=== PATIENT | male | born 1935 | race Caucasian/White ===

== ENCOUNTER → 2024-03-05 | Outpatient (CLI) | payer MEDICARE ==
[2024-03-05 20:01] LABS: Appearance,Urine Clear (Clear); Bilirubin,Urine Negative (Negative); Blood,Urine Negative (Negative); Color,Urine Yellow (Yellow); Ketones,Urine Negative (Negative); Nitrite,Urine Negative (Negative); PH, Urine 5.5; Specific Gravity,Urine 1.022 (1.001-1.030)
[2024-03-05 20:13] LABS: Basophils # (A) 0.05 X 10*3/uL (0.00-0.10); Basophils % (A) 0.5 %; Eosinophils # (A) 0.66 X 10*3/uL (0.04-0.35); HCT 33.1 % (39.6-50.0); HGB 10.4 g/dL (13.0-17.0); Lymphocytes # (A) 1.48 X 10*3/uL (0.90-5.00); Lymphocytes % (A) 15.6 %; MCHC 31.4 g/dL (32.0-37.0); MCV 98.8 FL (80.0-97.0); Mean Platelet Volume 10.6 FL (9.5-12.2); Monocytes # (A) 0.84 X 10*3/uL (0.20-1.00); Monocytes % (A) 8.9 %; NRBC Per 100 WBC 0 X 10*3/uL (0.00-0.01); Neutrophils % (A) 67.5 %; Platelet Count 285 X 10*3/uL (140-440); RBC 3.35 X 10*6/uL (4.40-5.60); RDW 13.1 % (11.5-14.5); WBC 9.48 X 10*3/uL (4.50-10.00)
[2024-03-05 20:20] LABS: ALT 13 U/L (10-49); AST 17 U/L (14-35); Albumin 3.9 g/dL (3.8-4.9); Albumin/Globulin Ratio 1.56 Ratio (1.60-3.17); Alkaline Phosphatase 120 U/L (41-126); BUN/Creat Ratio 28.11 Ratio (12.00-20.00); Blood Urea Nitrogen 50.6 mg/dL (9.0-27.0); Calcium 9.4 mg/dL (8.7-10.3); Carbon Dioxide 19.9 mmol/L (21.6-31.8); Chloride 106 mmol/L (96-109); Globulin 2.5 g/dL (1.6-3.3); Glucose 116 mg/dL (70-110); Magnesium 2.6 mg/dL (1.5-2.4); Phosphorus 3.7 mg/dL (2.4-5.1); Potassium 5.1 mmol/L (3.5-5.5); Sodium 140 mmol/L (135-145); Total Bilirubin 0.3 mg/dL (0.3-1.2); Total Protein 6.4 g/dL (6.2-8.2)
[2024-03-05 20:21] LABS: Microalbumin Creatinine Ratio <9 mg/g Cr (0-30)
[2024-03-05 20:28] LABS: Bacteria,Urine None Seen (None Seen)
== END | disposition home or self-care (01) ==
LOC: LABWHC1 13:03
PROVIDERS: ATTEND Internal Medicine
DX: N18.32 Chronic kidney disease, stage 3b (principal)
CPT/HCPCS: 36415; 80053; 81001; 82043; 82570; 83735; 84100; 85025

== ENCOUNTER 2024-04-07 08:17 | Inpatient (IN) | payer MEDICARE ==
[2024-04-07 09:08] LABS: Basophils # (A) 0.1 k/uL (0-0.2); Basophils % (A) 1 %; Eosinophils # (A) 0.4 k/uL (0-0.7); Eosinophils % (A) 3 %; Hypochromasia Marked; Lymphocytes # (A) 1.4 k/uL (1.0-4.8); Lymphocytes % (A) 12 %; MCH 30.9 pg (25.0-35.0); MCHC 30.4 g/dL (31.0-37.0); MCV 101.4 fL (80.0-100.0); Macrocytosis Slight; Mean Platelet Volume 7.9; Monocytes # (A) 0.8 k/uL (0-1.0); Monocytes % (A) 7 %; Neutrophils # (A) 8.2 k/uL (1.3-7.7); Neutrophils % (A) 74 %; Platelet Count 357 k/uL (150-450); Poikilocytosis Slight; RBC 2.27 m/uL (4.30-5.90); WBC 11.1 k/uL (3.8-10.6)
[2024-04-07 09:28] LABS: INR 1.4 (<1.2); Partial Thromboplastin Time 27.3 sec (22.0-30.0); Prothrombin Time 15.1 sec (10.0-12.5)
--- NOTE | 2024-04-07 09:28 | XR ---
EXAMINATION TYPE: XR chest 2V DATE OF EXAM: 04/07/2024 9:07 AM COMPARISON: 04/07/2024 CLINICAL INDICATION: Male, 88 years old with history of Weakness, TECHNIQUE: Frontal and lateral views of the chest are obtained. FINDINGS: COPD changes noted. There is no focal air space opacity, pleural effusion, or pneumothorax seen. The cardiac silhouette size is within normal limits. The osseous structures are intact. IMPRESSION: No acute cardiopulmonary process. [facility], , 04/07/2024 9:25 AM
[2024-04-07 09:39] LABS: ALT 16 U/L (4-49); AST 24 U/L (17-59); African American GFR (CKD) 37 (>60 ml/min/1.73 sqM); Albumin 4.2 g/dL (3.5-5.0); Alkaline Phosphatase 122 U/L (38-126); Anion Gap 13 mmol/L; Blood Urea Nitrogen 40 mg/dL (9-20); Carbon Dioxide 21 mmol/L (22-30); Chloride 102 mmol/L (98-107); Glucose 140 mg/dL (74-99); Magnesium 2.2 mg/dL (1.6-2.3); Non-African American GFR(CKD) 32 (>60 ml/min/1.73 sqM); Potassium 4.2 mmol/L (3.5-5.1); Sodium 136 mmol/L (137-145); Total Bilirubin 0.4 mg/dL (0.2-1.3); Total Protein 6.6 g/dL (6.3-8.2)
[2024-04-07 09:45] LABS: NT-Pro-B-Type Natriuretic Pept 1160 pg/mL
--- NOTE | 2024-04-07 11:11 | ED ---
General Adult HPI - General Chief complaint: Recheck/Abnormal Lab/Rx Stated complaint: Low hemoglobin Time Seen by Provider: 04/07/24 08:25 Source: patient, family Mode of arrival: ambulatory Limitations: no limitations - History of Present Illness Initial comments: 88-year-old male who presents to the emergency department under the direction of his primary care. He states that he had laboratory studies done on Friday to check his kidney function. His doctor had taken him off of [facility] as the patient was having some kidney injury. He reports that the blood work never got sent so they had to come back on Friday and recheck his labs. He was called and told that his hemoglobin was low and he needed to come to the hospital. He has had low hemoglobin before. States approximately 5 years ago he ended up requiring a blood transfusion. He states he thought it was due to iron deficiency anemia. Patient does take an iron supplement. Reports that it is made him constipated and for 3 weeks he has had inability to have a bowel mov ement. He has been rectally disimpacting himself. States that he will not see blood on the stool however he will have drops of bright red blood which will fall into the toilet. Patient does take anticoagulation. He is on Plavix and Eliquis. He states his last colonoscopy was 7 years ago. He denies any fevers. No abdominal pain. No other alleviating, precipitating modifying factors - Related Data Home Medications Medication Instructions Recorded Confirmed Amiodarone [Cordarone] 100 mg PO DAILY 04/07/24 04/07/24 Ascorbic Acid [Vitamin C] 1,000 mg PO DAILY 04/07/24 04/07/24 Atorvastatin [Lipitor] 40 mg PO DAILY 04/07/24 04/07/24 Cholecalciferol [Vitamin D3 (125 125 mcg PO DAILY 04/07/24 04/07/24 Mcg = 5000 Iu)] Clopidogrel [Plavix] 75 mg PO DAILY 04/07/24 04/07/24 Cyanocobalamin (Vitamin B-12) 1,000 mcg PO DAILY 04/07/24 04/07/24 [Vitamin B-12] Furosemide [Lasix] 40 mg PO DAILY 04/07/24 04/07/24 Isosorbide Mononitrate ER [Imdur] 30 mg PO DAILY 04/07/24 04/07/24 Levothyroxine Sodium [Synthroid] 150 mcg PO DAILY 04/07/24 04/07/24 Linaclotide [Linzess] 145 mcg PO DIRECTED 04/07/24 04/07/24 Metoprolol Succinate (ER) [Toprol 25 mg PO DAILY 04/07/24 04/07/24 Xl] Multivitamins, Thera [Multivitamin 1 tab PO DAILY 04/07/24 04/07/24 (formulary)] Nitroglycerin Sl Tabs [Nitrostat] 0.4 mg SUBLINGUAL Q5M PRN 04/07/24 04/07/24 Rivaroxaban [Xarelto] 20 mg PO W/SUPPER 04/07/24 04/07/24 Sennosides-Docusate Sodium 2 tab PO DAILY 04/07/24 04/07/24 [Senokot-S] Allergies Allergy/AdvReac Type Severity Reaction Status Date / Time No Known Allergies Allergy Verified 04/07/24 10:11 Review of Systems ROS Statement: Those systems with pertinent positive or pertinent negative responses have been documented in the HPI. ROS Other: All systems not noted in ROS Statement are negative. Past Medical History Past Medical History: Atrial Fibrillation, Cancer Additional Past Medical History / Comment(s): prostate CA, melanoma (great toe), Past Surgical History: Cardiac Valve Replacement, Cholecystectomy, Coronary Bypass/CABG, Heart Catheterization Additional Past Surgical History / Comment(s): left hand. Smoking Status: Former smoker Past Alcohol Use History: Occasional Past Drug Use History: None Reported - Past Family History Father Family Medical History: Congestive Heart Failure (CHF), Coronary Artery Disease (CAD), Myocardial Infarction (IN) Additional Family Medical History / Comment(s): from [place] Mother Family Medical History: Myocardial Infarction (IN) Additional Family Medical History / Comment(s): from [place] General Exam Limitations: no limitations General appearance: alert, in no apparent distress Head exam: Present: atraumatic, normocephalic, normal inspection Eye exam: Present: normal appearance, PERRL, EOMI. Absent: scleral icterus, conjunctival injection, periorbital swelling ENT exam: Present: normal exam, mucous membranes moist Neck exam: Present: normal inspection. Absent: tenderness, meningismus, lymphadenopathy Respiratory exam: Present: normal lung sounds bilaterally. Absent: respiratory distress, wheezes, rales, rhonchi, stridor Cardiovascular Exam: Present: regular rate, normal rhythm, normal heart sounds. Absent: systolic murmur, diastolic murmur, rubs, gallop, clicks GI/Abdominal exam: Present: soft, normal bowel sounds. Absent: distended, tenderness, guarding, rebound, rigid Rectal exam: Present: heme (+) stool, other (Brown stool). Absent: black stool, bloody stool Extremities exam: Present: normal inspection, full ROM, normal capillary refill. Absent: tenderness, pedal edema, joint swelling, calf tenderness Back exam: Present: normal inspection Neurological exam: Present: alert, oriented X3, CN II-XII intact Psychiatric exam: Present: normal affect, normal mood Skin exam: Present: warm, dry, intact, normal color. Absent: rash Course Vital Signs 04/07/24 04/07/24 04/07/24 08:19 09:25 11:46 Temperature 98.7 F 97.9 F Pulse Rate 55 L 88 86 Respiratory 18 22 18 Rate Blood Pressure 120/71 130/61 108/51 O2 Sat by Pulse 98 98 95 Oximetry 04/07/24 04/07/24 04/07/24 12:00 12:20 13:00 Temperature 98.1 F 98.2 F Pulse Rate 86 92 82 Respiratory 18 18 20 Rate Blood Pressure 122/92 112/70 113/56 O2 Sat by Pulse 99 96 96 Oximetry 04/07/24 04/07/24 04/07/24 13:56 16:00 17:00 Temperature Pulse Rate 82 89 93 Respiratory 18 20 20 Rate Blood Pressure 134/58 108/58 112/58 O2 Sat by Pulse 97 96 96 Oximetry 04/07/24 04/07/24 04/07/24 18:00 21:08 23:12 Temperature Pulse Rate 83 78 90 Respiratory 20 18 18 Rate Blood Pressure 104/57 99/54 104/56 O2 Sat by Pulse 95 Oximetry 04/08/24 04/08/24 04/08/24 01:08 02:32 05:20 Temperature Pulse Rate 88 92 98 Respiratory 18 18 18 Rate Blood Pressure 90/59 103/55 108/64 O2 Sat by Pulse 97 Oximetry 04/08/24 06:45 Temperature Pulse Rate 93 Respiratory 16 Rate Blood Pressure 125/54 O2 Sat by Pulse 97 Oximetry Procedures - [place] Protocol (Time Out) Nurse: Jones,Phani L Medical Decision Making - Medical Decision Making Was pt. sent in by a medical professional or institution (ELANA Westfall, DATA SOFTWARE ENGINEER, urgent care, hospital, or snf...) When possible be specific @ -Patient sent in from his primary care office Did you speak to anyone other than the patient for history (EMS, parent, family, police, friend...)? What history was obtained from this source @ -Spoke with son for history Did you review nursing and triage notes (agree or disagree)? Why? @ -I reviewed and agree with nursing and triage notes Were old charts reviewed (outside hosp., previous admission, EMS record, old EKG, old radiological studies, urgent care reports/EKG's, snf records)? Report findings @ -No old charts were reviewed Differential Diagnosis (chest pain, altered mental status, abdominal pain women, abdominal pain men, vaginal bleeding, weakness, fever, dyspnea, syncope, headache, dizziness, GI bleed, back pain, seizure, CVA, palpatations, mental health, musculoskeletal)? @ -Differential Dyspnea: Coronary syndrome, arrhythmia, tamponade, asthma, COPD, pulmonary embolism, pneumonia, pneumothorax, pulmonary effusion, anaphylaxis, diabetic ketoacidosis, flailed chest, pulmonary contusion, diaphragmatic rupture, anemia, n euromuscular, this is not meant to be an all-inclusive list. EKG interpreted by me (3pts min.). @ -Yes and demonstrates sinus rhythm with a left bundle branch block. Rate of 97. MI interval 207. QRS 155. QTc of 432. No acute ST segment elevations or depressions X-rays interpreted by me (1pt min.). @Yes and demonstrates no acute process CT interpreted by me (1pt min.). @ -None done U/S interpreted by me (1pt. min.). @ -None done What testing was considered but not performed or refused? (CT, X-rays, U/S, labs)? Why? @ -None What meds were considered but not given or refused? Why? @ -None Did you discuss the management of the patient with other professionals (professionals i.e. ELANA Westfall, DATA SOFTWARE ENGINEER, lab, RT, psych nurse, social work instructor, skid road worker, teacher, space officer, case management assistant)? Give summary @ -Spoke with Dr. Barrow for admission and with Dr. Garner who is the patient's primary care Was smoking cessation discussed for >3mins.? @ -No Was critical care preformed (if so, how long)? @ -Yes, 35 minutes for blood product transfusion Were there social determinants of health that impacted care today? How? (Homelessness, low income, unemployed, alcoholism, drug addiction, transportatio n, low edu. Level, literacy, decrease access to med. care, mcc, rehab)? @ -No Was there de-escalation of care discussed even if they declined (Discuss DNR or withdrawal of care, Hospice)? DNR status @ -No What co-morbidities impacted this encounter? (DM, HTN, Smoking, COPD, CAD, Cancer, CVA, ARF, Chemo, Hep., AIDS, mental health diagnosis, sleep apnea, morbid obesity)? @ -History of iron deficiency, history of GI bleed Was patient admitted / discharged? Hospital course, mention meds given and route, prescriptions, significant lab abnormalities, going to OR and other pertinent info. @ -Upon arrival patient seen and evaluated in bed 2. Thorough history and physical exam was performed. Rectal exam was performed. IV was established laboratory studies were conducted. Chest x-ray was performed. Patient will be transfused. Recommended admission for GI consultation. Spoke with Dr. Barrow for admission Undiagnosed new problem with uncertain prognosis? @ -No Drug Therapy requiring intensive monitoring for toxicity (Heparin, Nitro, Insulin, Cardizem)? @ -No Were any procedures done? @ -No Diagnosis/symptom? @ -Acute anemia, suspected GI bleeding, history of iron deficiency Acute, or Chronic, or Acute on Chronic? @ -Acute Uncomplicated (without systemic symptoms) or Complicated (systemic symptoms)? @ -Complicated Side effects of treatment? @ -No Exacerbation, Progression, or Severe Exacerbation? @ -No Poses a threat to life or bodily function? How? (Chest pain, [place], [place], pneumonia, PE, COPD, DKA, ARF, appy, cholecystitis, CVA, Diverticulitis, Homicidal, Suicidal, threat to staff... and all critical care pts) @ -Yes as patient is markedly anemic - Lab Data Result diagrams: 04/12/24 05:49 04/12/24 05:49 Lab Results 04/07/24 04/07/24 04/07/24 Range/Units 08:40 08:40 08:40 WBC 11.1 H (3.8-10.6) k/uL RBC 2.27 L (4.30-5.90) m/uL Hgb 7.0 L (13.0-17.5) gm/dL Hct 23.0 L (39.0-53.0) % MCV 101.4 H (80.0-100.0) fL MCH 30.9 (25.0-35.0) pg MCHC 30.4 L (31.0-37.0) g/dL RDW 15.0 (11.5-15.5) % Plt Count 357 (150-450) k/uL MPV 7.9 Neutrophils % 74 % Lymphocytes % 12 % Monocytes % 7 % Eosinophils % 3 % Basophils % 1 % Neutrophils # 8.2 H (1.3-7.7) k/uL Lymphocytes # 1.4 (1.0-4.8) k/uL Monocytes # 0.8 (0-1.0) k/uL Eosinophils # 0.4 (0-0.7) k/uL Basophils # 0.1 (0-0.2) k/uL Hypochromasia Marked Poikilocytosis Slight Macrocytosis Slight PT 15.1 H (10.0-12.5) sec INR 1.4 H (<1.2) APTT 27.3 (22.0-30.0) sec Sodium 136 L (137-145) mmol/L Potassium 4.2 (3.5-5.1) mmol/L Chloride 102 (98-107) mmol/L Carbon Dioxide 21 L (22-30) mmol/L Anion Gap 13 mmol/L BUN 40 H (9-20) mg/dL Creatinine 1.85 H (0.66-1.25) mg/dL Est GFR (CKD-EPI)AfAm 37 (>60 ml/min/1.73 sqM) Est GFR (CKD-EPI)NonAf 32 (>60 ml/min/1.73 sqM) Glucose 140 H (74-99) mg/dL Lactic Ac Sepsis Rflx Plasma Lactic Acid Salo (0.7-2.0) mmol/L Calcium 10.0 (8.4-10.2) mg/dL Magnesium 2.2 (1.6-2.3) mg/dL Total Bilirubin 0.4 (0.2-1.3) mg/dL AST 24 (17-59) U/L ALT 16 (4-49) U/L Alkaline Phosphatase 122 (38-126) U/L Troponin I (0.000-0.034) ng/mL NT-Pro-B Natriuret Pep 1160 pg/mL Total Protein 6.6 (6.3-8.2) g/dL Albumin 4.2 (3.5-5.0) g/dL Stool Occult Blood (Negative) Blood Type Blood Type Confirm Blood Type Recheck Bld Type Recheck Status Antibody Screen Crossmatch Spec Expiration Date 04/07/24 04/07/24 04/07/24 Range/Units 08:40 08:40 08:40 WBC (3.8-10.6) k/uL RBC (4.30-5.90) m/uL Hgb (13.0-17.5) gm/dL Hct (39.0-53.0) % MCV (80.0-100.0) fL MCH (25.0-35.0) pg MCHC (31.0-37.0) g/dL RDW (11.5-15.5) % Plt Count (150-450) k/uL MPV Neutrophils % % Lymphocytes % % Monocytes % % Eosinophils % % Basophils % % Neutrophils # (1.3-7.7) k/uL Lymphocytes # (1.0-4.8) k/uL Monocytes # (0-1.0) k/uL Eosinophils # (0-0.7) k/uL Basophils # (0-0.2) k/uL Hypochromasia Poikilocytosis Macrocytosis PT (10.0-12.5) sec INR (<1.2) APTT (22.0-30.0) sec Sodium (137-145) mmol/L Potassium (3.5-5.1) mmol/L Chloride (98-107) mmol/L Carbon Dioxide (22-30) mmol/L Anion Gap mmol/L BUN (9-20) mg/dL Creatinine (0.66-1.25) mg/dL Est GFR (CKD-EPI)AfAm (>60 ml/min/1.73 sqM) Est GFR (CKD-EPI)NonAf (>60 ml/min/1.73 sqM) Glucose (74-99) mg/dL Lactic Ac Sepsis Rflx Plasma Lactic Acid Salo 4.5 H* (0.7-2.0) mmol/L Calcium (8.4-10.2) mg/dL Magnesium (1.6-2.3) mg/dL Total Bilirubin (0.2-1.3) mg/dL AST (17-59) U/L ALT (4-49) U/L Alkaline Phosphatase (38-126) U/L Troponin I 0.029 (0.000-0.034) ng/mL NT-Pro-B Natriuret Pep pg/mL Total Protein (6.3-8.2) g/dL Albumin (3.5-5.0) g/dL Stool Occult Blood (Negative) Blood Type AB Negative Blood Type Confirm Blood Type Recheck No Previous Record Bld Type Recheck Status CABO Indicated Antibody Screen NEGATIVE Crossmatch See Detail Spec Expiration Date 04/10/2024 - 233904/07/24 04/07/24 04/07/24 Range/Units 08:52 09:22 09:52 WBC (3.8-10.6) k/uL RBC (4.30-5.90) m/uL Hgb (13.0-17.5) gm/dL Hct (39.0-53.0) % MCV (80.0-100.0) fL MCH (25.0-35.0) pg MCHC (31.0-37.0) g/dL RDW (11.5-15.5) % Plt Count (150-450) k/uL MPV Neutrophils % % Lymphocytes % % Monocytes % % Eosinophils % % Basophils % % Neutrophils # (1.3-7.7) k/uL Lymphocytes # (1.0-4.8) k/uL Monocytes # (0-1.0) k/uL Eosinophils # (0-0.7) k/uL Basophils # (0-0.2) k/uL Hypochromasia Poikilocytosis Macrocytosis PT (10.0-12.5) sec INR (<1.2) APTT (22.0-30.0) sec Sodium (137-145) mmol/L Potassium (3.5-5.1) mmol/L Chloride (98-107) mmol/L Carbon Dioxide (22-30) mmol/L Anion Gap mmol/L BUN (9-20) mg/dL Creatinine (0.66-1.25) mg/dL Est GFR (CKD-EPI)AfAm (>60 ml/min/1.73 sqM) Est GFR (CKD-EPI)NonAf (>60 ml/min/1.73 sqM) Glucose (74-99) mg/dL Lactic Ac Sepsis Rflx Y Plasma Lactic Acid Salo (0.7-2.0) mmol/L Calcium (8.4-10.2) mg/dL Magnesium (1.6-2.3) mg/dL Total Bilirubin (0.2-1.3) mg/dL AST (17-59) U/L ALT (4-49) U/L Alkaline Phosphatase (38-126) U/L Troponin I (0.000-0.034) ng/mL NT-Pro-B Natriuret Pep pg/mL Total Protein (6.3-8.2) g/dL Albumin (3.5-5.0) g/dL Stool Occult Blood Positive (Negative) Blood Type Blood Type Confirm AB Negative Blood Type Recheck Bld Type Recheck Status Antibody Screen Crossmatch Spec Expiration Date Disposition Clinical Impression: Anemia, Occult blood positive stool, Lactic acid acidosis, Anticoagulation adequate Disposition: ADMITTED IP TO THIS [facility] Condition: Stable Is patient prescribed a controlled substance at d/c from ED?: No Time of Disposition: 11:44 Decision to Admit Reason: Admit from EC Decision Date: 04/07/24 Decision Time: 11:44
[2024-04-07] MEDS ORDERED: NALOXONE 0.4 MG/ML 1 ML VIAL IV PRN (11:44)
[2024-04-07 16:33] LABS: HCT 22.3 % (39.0-53.0); HGB 7.1 gm/dL (13.0-17.5); Hypochromasia Marked; MCH 31.5 pg (25.0-35.0); MCHC 31.7 g/dL (31.0-37.0); MCV 99.3 fL (80.0-100.0); Macrocytosis Slight; Mean Platelet Volume 7.4; Platelet Count 297 k/uL (150-450); Poikilocytosis Moderate; RBC 2.24 m/uL (4.30-5.90); RDW 15.4 % (11.5-15.5); WBC 9.6 k/uL (3.8-10.6)
--- NOTE | 2024-04-07 19:34 | P.HPIM ---
History of Present Illness H&P Date: 04/07/24 Chief Complaint: Low hemoglobin This is a pleasant 88-year-old patient who follows with visiting physician Dr. Garner. 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 Patient came in because he was told his hemoglobin is 7. Patient had a EGD colonoscopy over 10 years ago. Patient does take Xarelto and Plavix. Patient had dark stools off and on. Unit of blood was ordered in the ER does feel a bit tired. Patient seen in the ER this afternoon. Review of systems: GEN.: Tired EYES: None HEENT: [Decreased hearing NECK: None RESPIRATORY: None CARDIOVASCULAR: None GASTROINTESTINAL: No abdominal pain GENITOURINARY: None MUSCULOSKELETAL: Joint pains LYMPHATICS: None HEMATOLOGICAL: Dark stools PSYCHIATRY: None NEUROLOGICAL: Does use a walker Social history: Lives with family. Alcohol occasionally. Stopped smoking back in the 70s. Does use a walker. Physical examination: VITAL SIGNS: 98.2, 92, 18, 112 x 70, 96% room air GENERAL: [BMI 36.8, reclining bed awake not in distress. EYES: [Pupils equal. Conjunctiva pale l. HEENT: External appearance of nose and ears normal, oral cavity grossly normal. Decreased hearing NECK: JVD not raised; masses not palpable. HEART: First and second heart sounds are normal; no edema. LUNGS: Respiratory rate normal; clear to auscultation. ABDOMEN: Soft, nontender, liver spleen not palpable, no masses palpable. PSYCH: Alert and oriented x3; mood and affect ghada l. MUSCULOSKELETAL:No Clubbing/cyanosis;muscles-grossly intact. OA NEUROLOGICAL: Cranial nerves grossly intact; no facial asymmetry, power and sensation grossly intact. LYMPHATICS: No lymph nodes palpable in the axilla and neck INVESTIGATIONS, reviewed in the clinical context: White count 11.1 hemoglobin 7 platelets 357 sodium 136 potassium 4.2 BUN 40 creatinine 1.85 Troponin I 0.029 Stool occult blood positive EKG tracing personally reviewed by -(linda block. Sinus rhythm. Chest x-ray film personally reviewed by me-cardiomegaly Assessment and plan: -Anemia, symptomatic. Patient been having dark stools off and on for some time. Patient is on Eliquis and Plavix. Patient will be transfused 1 unit of blood. Eliquis Plavix has been held. GIs been consulted. Patient placed on clear liquids. -History of melanoma and prostate cancer both treated in the past. 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 Toprol-XL. Imdur. -Congestive heart failure, EF not known Lasix 40 mg a day -Hypothyroid Synthroid 150 mcg a day -Hyperlipidemia Lipitor 40 mg a day -Essential hypertension Toprol-XL 25 mg a day -Chronic constipation, patient normally has a bowel movement every 4 to 5 days -Paroxysmal atrial fibrillation currently in sinus rhythm On Eliquis. Hold for now. Toprol-XL 25 mg a day. Amiodarone -Left bundle linda block -DNR -Patient's daughter BETH Spears Care was discussed with the patient and the patient's son-in-law at the bedside. Past Medical History Past Medical History: Atrial Fibrillation, Cancer Additional Past Medical History / Comment(s): prostate CA, melanoma (great toe), Past Surgical History: Cardiac Valve Replacement, Cholecystectomy, Coronary Bypass/CABG, Heart Catheterization Additional Past Surgical History / Comment(s): left hand. Smoking Status: Former smoker Past Alcohol Use History: Occasional Past Drug Use History: None Reported Medications and Allergies Home Medications Medication Instructions Recorded Confirmed Type Amiodarone [Cordarone] 100 mg PO DAILY 04/07/24 04/07/24 History Ascorbic Acid [Vitamin C] 1,000 mg PO DAILY 04/07/24 04/07/24 History Atorvastatin [Lipitor] 40 mg PO DAILY 04/07/24 04/07/24 History Cholecalciferol [Vitamin D3 (125 125 mcg PO DAILY 04/07/24 04/07/24 History Mcg = 5000 Iu)] Clopidogrel [Plavix] 75 mg PO DAILY 04/07/24 04/07/24 History Cyanocobalamin (Vitamin B-12) 1,000 mcg PO DAILY 04/07/24 04/07/24 History [Vitamin B-12] Furosemide [Lasix] 40 mg PO DAILY 04/07/24 04/07/24 History Isosorbide Mononitrate ER [Imdur] 30 mg PO DAILY 04/07/24 04/07/24 History Levothyroxine Sodium [Synthroid] 150 mcg PO DAILY 04/07/24 04/07/24 History Linaclotide [Linzess] 145 mcg PO DIRECTED 04/07/24 04/07/24 History Metoprolol Succinate (ER) [Toprol 25 mg PO DAILY 04/07/24 04/07/24 History Xl] Multivitamins, Thera [Multivitamin 1 tab PO DAILY 04/07/24 04/07/24 History (formulary)] Nitroglycerin Sl Tabs [Nitrostat] 0.4 mg SUBLINGUAL Q5M PRN 04/07/24 04/07/24 History Rivaroxaban [Xarelto] 20 mg PO W/SUPPER 04/07/24 04/07/24 History Sennosides-Docusate Sodium 2 tab PO DAILY 04/07/24 04/07/24 History [Senokot-S] Allergies Allergy/AdvReac Type Severity Reaction Status Date / Time No Known Allergies Allergy Verified 04/07/24 10:11 Physical Exam Vitals: Vital Signs Temp Pulse Resp BP Pulse Ox 04/07/24 17:00 93 20 112/58 96 04/07/24 16:00 89 20 108/58 96 04/07/24 13:56 82 18 134/58 97 04/07/24 13:00 82 20 113/56 96 04/07/24 12:20 98.2 F 92 18 112/70 96 04/07/24 12:00 98.1 F 86 18 122/92 99 04/07/24 11:46 97.9 F 86 18 108/51 95 04/07/24 09:25 88 22 130/61 98 04/07/24 08:19 98.7 F 55 L 18 120/71 98 Intake and Output 04/07/24 04/07/24 04/07/24 06:59 14:59 22:59 Intake Total 288 Balance 288 Intake: Blood Product 288 Rc Pheresis 2 As3 Unit 288 [id number] Other: Weight 109.769 kg Results CBC & Chem 7: 04/07/24 16:18 04/07/24 08:40 Labs: Abnormal Lab Results - Last 24 Hours (Table) 04/07/24 04/07/24 04/07/24 Range/Units 08:40 08:40 08:40 WBC 11.1 H (3.8-10.6) k/uL RBC 2.27 L (4.30-5.90) m/uL Hgb 7.0 L (13.0-17.5) gm/dL Hct 23.0 L (39.0-53.0) % MCV 101.4 H (80.0-100.0) fL MCHC 30.4 L (31.0-37.0) g/dL Neutrophils # 8.2 H (1.3-7.7) k/uL PT 15.1 H (10.0-12.5) sec INR 1.4 H (<1.2) Sodium 136 L (137-145) mmol/L Carbon Dioxide 21 L (22-30) mmol/L BUN 40 H (9-20) mg/dL Creatinine 1.85 H (0.66-1.25) mg/dL Glucose 140 H (74-99) mg/dL Plasma Lactic Acid Salo (0.7-2.0) mmol/L Crossmatch 04/07/24 04/07/24 04/07/24 Range/Units 08:40 08:40 16:18 WBC (3.8-10.6) k/uL RBC 2.24 L (4.30-5.90) m/uL Hgb 7.1 L (13.0-17.5) gm/dL Hct 22.3 L (39.0-53.0) % MCV (80.0-100.0) fL MCHC (31.0-37.0) g/dL Neutrophils # (1.3-7.7) k/uL PT (10.0-12.5) sec INR (<1.2) Sodium (137-145) mmol/L Carbon Dioxide (22-30) mmol/L BUN (9-20) mg/dL Creatinine (0.66-1.25) mg/dL Glucose (74-99) mg/dL Plasma Lactic Acid Salo 4.5 H* (0.7-2.0) mmol/L Crossmatch See Detail
[2024-04-08] MEDS: LEVOTHYROXINE 50 MCG TAB PO SCH (06:43)
[2024-04-08 08:48] LABS: BUN/Creat Ratio 25.12 Ratio (12.00-20.00); Blood Urea Nitrogen 42.7 mg/dL (9.0-27.0); Carbon Dioxide 22.2 mmol/L (21.6-31.8); Chloride 106 mmol/L (96-109); Glucose 113 mg/dL (70-110); Potassium 4.8 mmol/L (3.5-5.5); Sodium 139 mmol/L (135-145)
[2024-04-08] MEDS: ASCORBIC ACID 500 MG TAB PO SCH (09:33)
[2024-04-08] MEDS: polyethylene glycoL 3350 17 GM POWD.PACK PO SCH (09:33)
[2024-04-08] MEDS: MULTIVITAMINS, THERA 1 EACH TAB PO SCH (09:33)
[2024-04-08] MEDS: ISOSORBIDE MONONITRATE ER 30 MG TAB.ER.24H PO SCH (09:33)
[2024-04-08] MEDS: METOPROLOL SUCCINATE (ER) 25 MG TAB.ER.24H PO SCH (09:33)
[2024-04-08] MEDS: SENNOSIDES-DOCUSATE SODIUM 1 EACH TAB PO SCH (09:33)
[2024-04-08] MEDS: FUROSEMIDE 40 MG TAB PO SCH (09:33)
[2024-04-08] MEDS: CYANOCOBALAMIN 500 MCG TAB PO SCH (09:33)
[2024-04-08] MEDS: AMIODARONE 200 MG TAB PO SCH (09:33)
[2024-04-08] MEDS: CHOLECALCIFEROL 125 MCG (5000 IU) TABLET PO SCH (09:33)
[2024-04-08] MEDS: ATORVASTATIN 40 MG TAB PO SCH (09:33)
[2024-04-08 10:01] LABS: Basophils # (A) 0.04 X 10*3/uL (0.00-0.10); Basophils % (A) 0.4 %; Eosinophils # (A) 0.24 X 10*3/uL (0.04-0.35); Eosinophils % (A) 2.6 %; HCT 22.5 % (39.6-50.0); HGB 6.4 g/dL (13.0-17.0); Lymphocytes % (A) 13.9 %; MCH 29.6 pg (27.0-32.0); MCHC 28.4 g/dL (32.0-37.0); MCV 104.2 FL (80.0-97.0); Mean Platelet Volume 10.3 FL (9.5-12.2); Monocytes # (A) 1.03 X 10*3/uL (0.20-1.00); NRBC Per 100 WBC 0.02 X 10*3/uL (0.00-0.01); Neutrophils # (A) 6.68 X 10*3/uL (1.80-7.70); Neutrophils % (A) 71.5 %; Platelet Count 276 X 10*3/uL (140-440); Polychromasia 2+ (None Seen); RBC 2.16 X 10*6/uL (4.40-5.60); RDW 16.2 % (11.5-14.5); WBC 9.35 X 10*3/uL (4.50-10.00)
--- NOTE | 2024-04-08 13:54 | P.CONS ---
History of Present Illness - Reason for Consult Consult date: 04/08/24 Hematochezia Requesting physician: Monae Man - Chief Complaint Abnormal labs - History of Present Illness This a pleasant 88-year-old male who presented to the emergency department directed by his physician for abnormal labs and low hemoglobin. Patient has a history of iron deficiency anemia on oral iron, atrial fibrillation on Xarelto, coronary artery disease on Plavix, prostate cancer and heart valve replacement. Patient states he was having blood work done and his physician told him to come in for concerns of low hemoglobin. Admitting hemoglobin was 7.0. He was given 1 unit of blood with a repeat hemoglobin is 7.1. Today's hemoglobin dropped down to 6.4. Patient states that he has been very constipated has not had a good bowel movement when he does it is very hard and large and he actually had to disimpact himself this week. When he had a bowel movement he had noticed that he has hemorrhoids and there was some bright red blood mixed with the stool and in the toilet. States that he does have dark stools at times as well he bought thought was secondary to his iron. He states that he has had colonoscopy in the past secondary to his iron deficiency anemia that was done at [facility]. He had EGD and colonoscopy in 2019 at [facility] with Dr. Oviedo for iron deficiency anemia with findings of small hiatal hernia, gastritis, diverticulosis and internal hemorrhoids. He states that the colonoscopy was found to be normal. He denies any known history of ulcers, denies any NSAID use, no abdominal pain and does not believe he has had a previous upper endoscopy. Patient's occult stool was positive for blood. Review of Systems REVIEW OF SYSTEMS: CARDIOPULMONARY: No chest pain or shortness of breath. Gastrointestinal: No Abdominal pain. No nausea or vomiting. No hematemesis, coffee-ground emesis. Forted hemorrhoids, constipation and rectal bleeding with bowel movement. GENITOURINARY: No dysuria or hematuria. MUSCULOSKELETAL: Reports normal range of motion., Joint pain. SKIN: No rashes. No jaundice. ENDOCRINE: No chills, fevers. No excessive weight gain or loss. No polydipsia or polyuria. PSYCHIATRIC: Unremarkable. NEUROLOGY: No change in mental status. Denies dizziness, headache. ENT: Vision unremarkable. CONSTITUTIONAL: No recent weight loss. No fever, chills, night sweats. Past Medical History Past Medical History: Atrial Fibrillation, Cancer Additional Past Medical History / Comment(s): prostate CA, melanoma (great toe), Past Surgical History: Cardiac Valve Replacement, Cholecystectomy, Coronary Bypass/CABG, Heart Catheterization Additional Past Surgical History / Comment(s): left hand. Smoking Status: Former smoker Past Alcohol Use History: Occasional Past Drug Use History: None Reported - Past Family History Father Family Medical History: Congestive Heart Failure (CHF), Coronary Artery Disease (CAD), Myocardial Infarction (ME) Additional Family Medical History / Comment(s): from ME Mother Family Medical History: Myocardial Infarction (ME) Additional Family Medical History / Comment(s): from ME Medications and Allergies Home Medications Medication Instructions Recorded Confirmed Type Amiodarone [Cordarone] 100 mg PO DAILY 04/07/24 04/07/24 History Ascorbic Acid [Vitamin C] 1,000 mg PO DAILY 04/07/24 04/07/24 History Atorvastatin [Lipitor] 40 mg PO DAILY 04/07/24 04/07/24 History Cholecalciferol [Vitamin D3 (125 125 mcg PO DAILY 04/07/24 04/07/24 History Mcg = 5000 Iu)] Clopidogrel [Plavix] 75 mg PO DAILY 04/07/24 04/07/24 History Cyanocobalamin (Vitamin B-12) 1,000 mcg PO DAILY 04/07/24 04/07/24 History [Vitamin B-12] Furosemide [Lasix] 40 mg PO DAILY 04/07/24 04/07/24 History Isosorbide Mononitrate ER [Imdur] 30 mg PO DAILY 04/07/24 04/07/24 History Levothyroxine Sodium [Synthroid] 150 mcg PO DAILY 04/07/24 04/07/24 History Linaclotide [Linzess] 145 mcg PO DIRECTED 04/07/24 04/07/24 History Metoprolol Succinate (ER) [Toprol 25 mg PO DAILY 04/07/24 04/07/24 History Xl] Multivitamins, Thera [Multivitamin 1 tab PO DAILY 04/07/24 04/07/24 History (formulary)] Nitroglycerin Sl Tabs [Nitrostat] 0.4 mg SUBLINGUAL Q5M PRN 04/07/24 04/07/24 History Rivaroxaban [Xarelto] 20 mg PO W/SUPPER 04/07/24 04/07/24 History Sennosides-Docusate Sodium 2 tab PO DAILY 04/07/24 04/07/24 History [Senokot-S] Allergies Allergy/AdvReac Type Severity Reaction Status Date / Time No Known Allergies Allergy Verified 04/07/24 10:11 Physical Exam Vitals: Vital Signs Temp Pulse Pulse Resp BP BP Pulse Ox 04/08/24 07:35 98.2 F 97 20 122/71 99 04/08/24 06:45 93 16 125/54 97 04/08/24 05:20 98 18 108/64 97 04/08/24 02:32 92 18 103/55 04/08/24 01:08 88 18 90/59 04/07/24 23:12 90 18 104/56 04/07/24 21:08 78 18 99/54 04/07/24 18:00 83 20 104/57 95 04/07/24 17:00 93 20 112/58 96 04/07/24 16:00 89 20 108/58 96 04/07/24 13:56 82 18 134/58 97 04/07/24 13:00 82 20 113/56 96 04/07/24 12:20 98.2 F 92 18 112/70 96 04/07/24 12:00 98.1 F 86 18 122/92 99 04/07/24 11:46 97.9 F 86 18 108/51 95 04/07/24 09:25 88 22 130/61 98 General appearance: The patient is alert, oriented, appears in no acute distress. HET: Head is normocephalic and atraumatic. Conjunctiva pink. Sclera anicteric. Neck: Supple without lymphadenopathy. Trachea midline. Heart: Regular. Lungs: Equal expansion, normal respiratory effort. Abdomen: Soft, nontender, nondistended. Skin: No rashes. No jaundice. Extremities: Normal skin color and turgor. No pedal edema. Neurological: No focal deficits. Alert and oriented x3. Results CBC & Chem 7: 04/08/24 04:12 04/08/24 04:12 Labs: Abnormal Lab Results - Last 24 Hours (Table) 04/07/24 04/07/24 04/07/24 Range/Units 08:40 08:40 08:40 WBC 11.1 H (3.8-10.6) k/uL RBC 2.27 L (4.30-5.90) m/uL Hgb 7.0 L (13.0-17.5) gm/dL Hct 23.0 L (39.0-53.0) % MCV 101.4 H (80.0-100.0) fL MCHC 30.4 L (31.0-37.0) g/dL Neutrophils # 8.2 H (1.3-7.7) k/uL PT 15.1 H (10.0-12.5) sec INR 1.4 H (<1.2) Sodium 136 L (137-145) mmol/L Carbon Dioxide 21 L (22-30) mmol/L BUN 40 H (9-20) mg/dL Creatinine 1.85 H (0.66-1.25) mg/dL Glucose 140 H (74-99) mg/dL Plasma Lactic Acid Salo (0.7-2.0) mmol/L Crossmatch 04/07/24 04/07/24 04/07/24 Range/Units 08:40 08:40 16:18 WBC (3.8-10.6) k/uL RBC 2.24 L (4.30-5.90) m/uL Hgb 7.1 L (13.0-17.5) gm/dL Hct 22.3 L (39.0-53.0) % MCV (80.0-100.0) fL MCHC (31.0-37.0) g/dL Neutrophils # (1.3-7.7) k/uL PT (10.0-12.5) sec INR (<1.2) Sodium (137-145) mmol/L Carbon Dioxide (22-30) mmol/L BUN (9-20) mg/dL Creatinine (0.66-1.25) mg/dL Glucose (74-99) mg/dL Plasma Lactic Acid Salo 4.5 H* (0.7-2.0) mmol/L Crossmatch See Detail Assessment and Plan (1) Hematochezia Narrative/Plan: 88-year-old male presenting with anemia with a positive occult stool with c omplaints of chronic constipation secondary to iron for his iron deficiency anemia. Patient states he has been iron deficient in the past and had required a blood transfusion. That was about 8 years ago he did undergo colonoscopy at that time at [facility] unfortunately reports are not available. He states that he has been so constipated that he actually had to disimpact himself and believes he has hemorrhoids. States he does have some rectal bleeding with passing of the bowel movement. He denies any abdominal pain, nausea or vomiting. No history of peptic ulcer disease. He does have atrial fibrillation and coronary artery disease and is on Xarelto and Plavix. Need to consider po ssible GI sources underlying etiology for anemia. Hold anticoagulation. Iron studies ordered. Will proceed with upper and lower endoscopy to evaluate for possible GI source. Current Visit: Yes Status: Acute Code(s): K92.1 - MELENA SNOMED Code(s): 962294268 (2) Anemia Current Visit: Yes Status: Acute Code(s): D64.9 - ANEMIA, UNSPECIFIED SNOMED Code(s): 706896014 (3) Constipation Current Visit: Yes Status: Acute Code(s): K59.00 - CONSTIPATION, UNSPECIFIED SNOMED Code(s): 63292951 (4) Hemorrhoids Current Visit: Yes Status: Acute Code(s): K64.9 - UNSPECIFIED HEMORRHOIDS SNOMED Code(s): 15953014 Plan: 1. Continue symptomatic and supportive care 2. Transfuse 1 unit of blood 3. Daily CBC, transfuse for hemoglobin less than 7 4. Protonix 40 mg daily for GI prophylaxis 5. MiraLAX ordered for constipation 6. Iron studies ordered 7. EGD and colonoscopy planned for tomorrow 8. Bowel prep this evening 9. Clear liquid diet, n.p.o. after midnight Thank you for this consultation, we will continue to follow. Dr. Cat Reyes I agree with the dictator's note, documented as a scribe by Ludmila Coburn.
[2024-04-08 15:24] LABS: % Iron Saturation 4.86 (15.00-50.00); Ferritin 27.2 ng/mL (22.0-322.0)
--- NOTE | 2024-04-08 16:39 | P.PN ---
Progress Note - Text Progress Note Date: 04/08/24 Chief Complaint: Low hemoglobin This is a pleasant 88-year-old patient who follows with visiting physician Dr. Garner. 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 Patient came in because he was told his hemoglobin is 7. Patient had a EGD colonoscopy over 10 years ago. Patient does take Xarelto and Plavix. Patient had dark stools off and on. Unit of blood was ordered in the ER does feel a bit tired. Patient seen in the ER this afternoon. April 08: Hemoglobin this morning dropped to 6.4. Monitor blood was ordered. Seen by Dr. Cat Reyes/GI. Plan for EGD colonoscopy tomorrow.Remains on clear liquid diet and n.p.o. after midnight. Laying in bed. Tired. Active Medications Amiodarone HCl (Amiodarone 200 Mg Tab) 100 mg PO DAILY [facility] Last Admin: 04/08/24 09:33 Dose: 100 mg Ascorbic Acid (Ascorbic Acid 500 Mg Tab) 1,000 mg PO DAILY [facility] Last Admin: 04/08/24 09:33 Dose: 1,000 mg Atorvastatin Calcium (Atorvastatin 40 Mg Tab) 40 mg PO DAILY [facility] Last Admin: 04/08/24 09:33 Dose: 40 mg Cholecalciferol (Cholecalciferol 125 Mcg (5000 Iu) Tablet) 125 mcg PO DAILY [facility] Last Admin: 04/08/24 09:33 Dose: 125 mcg Cyanocobalamin (Cyanocobalamin 500 Mcg Tab) 1,000 mcg PO DAILY [facility] Last Admin: 04/08/24 09:33 Dose: 1,000 mcg Furosemide (Furosemide 40 Mg Tab) 40 mg PO DAILY [facility] Last Admin: 04/08/24 09:33 Dose: 40 mg Isosorbide Mononitrate (Isosorbide Mononitrate Er 30 Mg Tab.Er.24h) 30 mg PO DAILY [facility] Last Admin: 04/08/24 09:33 Dose: 30 mg Levothyroxine Sodium (Levothyroxine 50 Mcg Tab) 150 mcg PO DAILY@0630 [facility] Last Admin: 04/08/24 06:43 Dose: 150 mcg Metoprolol Succinate (Metoprolol Succinate (Er) 25 Mg Tab.Er.24h) 25 mg PO DAILY [facility] Last Admin: 04/08/24 09:33 Dose: 25 mg Multivitamins (Multivitamins, Thera 1 Each Tab) 1 each PO DAILY [facility] Last Admin: 04/08/24 09:33 Dose: 1 each Naloxone HCl (Naloxone 0.4 Mg/Ml 1 Ml Vial) 0.2 mg IV Q2M PRN PRN Reason: Opioid Reversal Polyethylene Glycol (Polyethylene Glycol 3350 17 Gm Powd.Pack) 17 gm PO DAILY [facility] Last Admin: 04/08/24 09:33 Dose: 17 gm Polyethylene Glycol/Electrolytes (Peg 3350 (236 Gm/Btl) + Lytes 4,000 Ml Bottle) 4,000 ml PO ONCE ONE Stop: 04/08/24 17:01 Senna/Docusate Sodium (Sennosides-Docusate Sodium 1 Each Tab) 2 each PO DAILY [facility] Last Admin: 04/08/24 09:33 Dose: 2 each Social history: Lives with family. Alcohol occasionally. Stopped smoking back in the 70s. Does use a walker. Physical examination: VITAL SIGNS: 98.2, 97, 20, 122 x 71, 99% room air GENERAL: [BMI 36.8, reclining bed awake not in distress. EYES: [Pupils equal. Conjunctiva pale l. HEENT: External appearance of nose and ears normal, oral cavity grossly normal. Decreased hearing NECK: JVD not raised; masses not palpable. HEART: First and second heart sounds are normal; no edema. LUNGS: Respiratory rate normal; clear to auscultation. ABDOMEN: Soft, nontender, liver spleen not palpable, no masses palpable. PSYCH: Alert and oriented x3; mood and affect ghada l. MUSCULOSKELETAL:No Clubbing/cyanosis;muscles-grossly intact. OA INVESTIGATIONS, reviewed in the clinical context: April 08: White count 9.3 hemoglobin 6.4 platelets 276 potassium 4.8 BUN 42.7 creatinine 1.7 White count 11.1 hemoglobin 7 platelets 357 sodium 136 potassium 4.2 BUN 40 creatinine 1.85 Troponin I 0.029 Stool occult blood positive EKG tracing personally reviewed by me-(linda block. Sinus rhythm. Chest x-ray film personally reviewed by me-cardiomegaly Assessment and plan: -Anemia, symptomatic. dark stools off and on for some time/acute GI bleed. on Eliquis and Plavix.: Worsening Patient to be transfused second unit of blood today. Seen by GI. For EGD colonoscopy tomorrow. Clear liquids -History of melanoma and prostate cancer both treated in the past. 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 Toprol-XL. Imdur. -Congestive heart failure, EF not known Lasix 40 mg a day -Hypothyroid Synthroid 150 mcg a day -Hyperlipidemia Lipitor 40 mg a day -Essential hypertension Toprol-XL 25 mg a day -Chronic constipation, patient normally has a bowel movement every 4 to 5 days -Paroxysmal atrial fibrillation currently in sinus rhythm On Eliquis. Hold for now. Toprol-XL 25 mg a day. Amiodarone -Left bundle linda block -DNR -Patient's daughter BETH Spears Secondary to blood ordered today. Follow H&H. For EGD colonoscopy tomorrow. Past Medical History Past Medical History: Atrial Fibrillation, Cancer Additional Past Medical History / Comment(s): prostate CA, melanoma (great toe), Past Surgical History: Cardiac Valve Replacement, Cholecystectomy, Coronary Bypass/CABG, Heart Catheterization Additional Past Surgical History / Comment(s): left hand. Smoking Status: Former smoker Past Alcohol Use History: Occasional Past Drug Use History: None Reported
[2024-04-08] MEDS: PEG 3350 (236 GM/BTL) + LYTES 4,000 ML BOTTLE PO ONE (17:40)
[2024-04-09 07:26] LABS: Basophils % (A) 0 %; Eosinophils # (A) 0.1 k/uL (0-0.7); Eosinophils % (A) 1 %; HCT 24.5 % (39.0-53.0); HGB 7.7 gm/dL (13.0-17.5); Hypochromasia Marked; Lymphocytes # (A) 0.8 k/uL (1.0-4.8); Lymphocytes % (A) 7 %; MCH 30.4 pg (25.0-35.0); MCHC 31.5 g/dL (31.0-37.0); MCV 96.6 fL (80.0-100.0); Mean Platelet Volume 7.9; Monocytes # (A) 0.8 k/uL (0-1.0); Monocytes % (A) 7 %; Neutrophils # (A) 9.8 k/uL (1.3-7.7); Neutrophils % (A) 83 %; Platelet Count 292 k/uL (150-450); Poikilocytosis Moderate; RBC 2.54 m/uL (4.30-5.90); RDW 15.7 % (11.5-15.5); WBC 11.9 k/uL (3.8-10.6)
[2024-04-09] MEDS: MAGNESIUM CITRATE 296 ML BOTTLE PO ONE (08:26)
[2024-04-09 10:51] LABS: BUN/Creat Ratio 23.06 Ratio (12.00-20.00); Blood Urea Nitrogen 39.2 mg/dL (9.0-27.0); Calcium 8.6 mg/dL (8.7-10.3); Carbon Dioxide 23.1 mmol/L (21.6-31.8); Chloride 100 mmol/L (96-109); Glucose 114 mg/dL (70-110); Potassium 4.2 mmol/L (3.5-5.5); Sodium 137 mmol/L (135-145)
[2024-04-09 11:34] LABS: INR 1.07 sec (0.93-1.11); Prothrombin Time 11.9 sec (9.9-11.9)
[2024-04-09] MEDS ORDERED: PHENYLEPHRINE-0.9% NACL SYG 1,000 MCG/10 ML SYRINGE ONE (15:30)
[2024-04-09] MEDS ORDERED: LIDOCAINE 1% INJ 10MG/ML (20 ML MDV) ONE (15:30)
[2024-04-09] MEDS ORDERED: PROPOFOL 10 MG/ML 20 ML VIAL IV ONE (15:30)
[2024-04-09] MEDS: LACTATED RINGERS 1,000 ML IV ONE (15:35)
--- NOTE | 2024-04-09 16:03 | P.PCN ---
Date of Procedure: 04/09/24 Procedure(s) Performed: Brief history: Patient is a pleasant 88-year-old white male scheduled for an elective upper endoscopy as well as colonoscopy as a part of evaluation of symptomatic anemia with a hemoglobin of 7 requiring unit of PRBC transfusion. Iron indicis were consistent with iron deficiency anemia. Patient has history of A-fib and is on Xarelto which is on hold for 2 days. Procedure performed: Esophagogastroduodenoscopy Colonoscopy with argon plasma Coagulation Preoperative diagnosis: Iron deficiency anemia Anesthesia: MAC Procedure: After informed consent was obtained from the patient was brought into the endoscopy unit and IV sedation was administered by anesthesia under continuous monitoring. Initially upper endoscopy was done. The Olympus GF 160 video endoscope was inserted inserted into the mouth and esophagus intubated without any difficulty and was gradually advanced into the stomach and duodenum and carefully examined. The bulb and second part of the duodenum appeared normal. The scope was then withdrawn into the stomach adequately insufflated with air and upon careful examination the antrum and mild gastritis and biopsies were done for this area. Body, cardia and fundus appeared normal. The scope was then withdrawn into the esophagus. The GE junction was located at 40 cm to the incisors. It appeared regular with no erythema erosions or ulcerations. Rest of the esophagus appeared normal. Patient tolerated the procedure well. At this time the patient continued to remain sedation. Initial digital rectal examination was normal. Olympus CF 160 video colonoscope was then inserted into the rectum and gradually advanced to the cecum without any difficulty. Careful examination was performed as the scope was gradually being withdrawn. The prep was poor in several areas of the colon. The cecum, ascending colon, transverse colon, descending colon, sigmoid colon and rectum appeared normal. Retroflexion was performed in the rectum and scattered telangiectasias were noted in the distal rectum consistent with radiation proctitis plasma coagulation was performed with good hemostasis Impression: 1. Upper endoscopy revealed mild antral gastritis but no evidence of esophagitis or peptic ulcer disease 2. Colonoscopy revealed telangiectasia in the distal rectum consistent with radiation proctitis status post argon plasma coagulation Recommendations: Findings of this examination were discussed with the patient. Advance diet as tolerated. Resume Xarelto tomorrow..
--- NOTE | 2024-04-09 17:15 | P.PN ---
Progress Note - Text Progress Note Date: 04/09/24 Chief Complaint: Low hemoglobin This is a pleasant 88-year-old patient who follows with visiting physician Dr. Garner. 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 Patient came in because he was told his hemoglobin is 7. Patient had a EGD colonoscopy over 10 years ago. Patient does take Xarelto and Plavix. Patient had dark stools off and on. Unit of blood was ordered in the ER does feel a bit tired. Patient seen in the ER this afternoon. April 08: Hemoglobin this morning dropped to 6.4. Monitor blood was ordered. Seen by Dr. Cat Reyes/GI. Plan for EGD colonoscopy tomorrow.Remains on clear liquid diet and n.p.o. after midnight. Laying in bed. Tired. April 09:: EGD showed mild antral gastritis. Nothing else of significance. Colonoscopy showed telangiectasias in the distal rectum consistent with radiation proctitis argon plasma coagulation was done. Per Dr. Cat Reyes to Xarelto to resume tomorrow. Diet is being resumed. Patient comfortable. Social history: Lives with family. Alcohol occasionally. Stopped smoking back in the 70s. Does use a walker. Physical examination: VITAL SIGNS: 97.7, 73, 18, 113 x 67, 97% room air GENERAL: [BMI 36.8, reclining bed awake not in distress. EYES: [Pupils equal. Conjunctiva pale l. HEENT: External appearance of nose and ears normal, oral cavity grossly normal. Decreased hearing NECK: JVD not raised; masses not palpable. HEART: First and second heart sounds are normal; no edema. LUNGS: Respiratory rate normal; clear to auscultation. ABDOMEN: Soft, nontender, liver spleen not palpable, no masses palpable. PSYCH: Alert and oriented x3; mood and affect ghada l. MUSCULOSKELETAL:No Clubbing/cyanosis;muscles-grossly intact. OA INVESTIGATIONS, reviewed in the clinical context: EGD: Mild antral gastritis Colonoscopy: Telangiectasia from radiation proctitis., Argon plasma coagulation April 09: Hemoglobin 7.7 April 08: White count 9.3 hemoglobin 6.4 platelets 276 potassium 4.8 BUN 42.7 creatinine 1.7 White count 11.1 hemoglobin 7 platelets 357 sodium 136 potassium 4.2 BUN 40 creatinine 1.85 Troponin I 0.029 Stool occult blood positive EKG tracing personally reviewed by me-(linda block. Sinus rhythm. Chest x-ray film personally reviewed by me-cardiomegaly Assessment and plan: -Anemia, symptomatic. dark stools off and on for some time/acute GI bleed. 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 Argon plasma coagulation carried out By Dr. Cat Reyes on April 09. Resume diet. Xarelto to be resumed tomorrow -History of melanoma and prostate cancer both treated in the past. 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 Toprol-XL. Imdur. -Congestive heart failure, EF not known Lasix 40 mg a day -Hypothyroid Synthroid 150 mcg a day -Hyperlipidemia Lipitor 40 mg a day -Essential hypertension Toprol-XL 25 mg a day -Chronic constipation, patient normally has a bowel movement every 4 to 5 days -Paroxysmal atrial fibrillation currently in sinus rhythm On Eliquis. Hold for now. Toprol-XL 25 mg a day. Amiodarone -Left bundle linda block -DNR -Patient's daughter BETH Spears Colonoscopy results procedure noted. Diet being resumed. Xarelto to be resumed tomorrow. Check hemoglobin in the morning. Past Medical History Past Medical History: Atrial Fibrillation, Cancer Additional Past Medical History / Comment(s): prostate CA, melanoma (great toe), Past Surgical History: Cardiac Valve Replacement, Cholecystectomy, Coronary Bypass/CABG, Heart Catheterization Additional Past Surgical History / Comment(s): left hand. Smoking Status: Former smoker Past Alcohol Use History: Occasional Past Drug Use History: None Reported
[2024-04-10 05:47] LABS: Basophils % (A) 0 %; Eosinophils # (A) 0.3 k/uL (0-0.7); Eosinophils % (A) 3 %; HCT 22.1 % (39.0-53.0); Hypochromasia Marked; Lymphocytes # (A) 0.8 k/uL (1.0-4.8); Lymphocytes % (A) 9 %; MCH 29.8 pg (25.0-35.0); MCHC 30.5 g/dL (31.0-37.0); MCV 97.8 fL (80.0-100.0); Mean Platelet Volume 7.8; Monocytes # (A) 0.6 k/uL (0-1.0); Monocytes % (A) 7 %; Neutrophils # (A) 6.9 k/uL (1.3-7.7); Neutrophils % (A) 78 %; Platelet Count 254 k/uL (150-450); Poikilocytosis Moderate; RBC 2.26 m/uL (4.30-5.90); RDW 14.7 % (11.5-15.5); WBC 8.8 k/uL (3.8-10.6)
[2024-04-10 05:54] LABS: HGB 6.8 gm/dL (13.0-17.5)
[2024-04-10 06:00] LABS: African American GFR (CKD) 49 (>60 ml/min/1.73 sqM); Anion Gap 2 mmol/L; Blood Urea Nitrogen 36 mg/dL (9-20); Calcium 8.5 mg/dL (8.4-10.2); Carbon Dioxide 28 mmol/L (22-30); Chloride 102 mmol/L (98-107); Glucose 89 mg/dL (74-99); Non-African American GFR(CKD) 42 (>60 ml/min/1.73 sqM); Potassium 3.8 mmol/L (3.5-5.1); Sodium 132 mmol/L (137-145)
[2024-04-10 13:15] LABS: HCT 23.9 % (39.0-53.0); HGB 7.6 gm/dL (13.0-17.5); Hypochromasia Marked; MCH 30.3 pg (25.0-35.0); MCHC 31.7 g/dL (31.0-37.0); MCV 95.5 fL (80.0-100.0); Mean Platelet Volume 8.4; Platelet Count 236 k/uL (150-450); Poikilocytosis Moderate; RDW 15.1 % (11.5-15.5); WBC 8.4 k/uL (3.8-10.6)
[2024-04-11 09:29] LABS: HCT 23.3 % (39.6-50.0); HGB 7.2 g/dL (13.0-17.0); MCH 29.6 pg (27.0-32.0); MCHC 30.9 g/dL (32.0-37.0); MCV 95.9 FL (80.0-97.0); Mean Platelet Volume 10.3 FL (9.5-12.2); NRBC Per 100 WBC 0 X 10*3/uL (0.00-0.01); Platelet Count 235 X 10*3/uL (140-440); RBC 2.43 X 10*6/uL (4.40-5.60); WBC 9.07 X 10*3/uL (4.50-10.00)
--- NOTE | 2024-04-11 11:44 | P.PN ---
Subjective Progress Note Date: 04/10/24 88-year-old patient who follows with visiting physician Dr. Garner. 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 Patient came in because he was told his hemoglobin is 7. Patient had a EGD colonoscopy over 10 years ago. Patient does take Xarelto and Plavix. Patient had dark stools off and on. Unit of blood was ordered in the ER does feel a bit tired. Patient seen in the ER this afternoon. Hemoglobin this morning dropped to 6.4. Monitor blood was ordered. Seen by Dr. Cat Reyes/GI. Event EGD colonoscopy ---EGD showed mild antral gastritis. Colonoscopy showed telangiectasias in the distal rectum consistent with radiation proctitis argon plasma coagulation was done. Per Dr. Cat Reyes to Xarelto to resume today -Hemoglobin down to 6.8 this morning; 1 unit of packed RBCs has been ordered; we will continue to hold Xarelto and monitor H&H closely Objective - Vital Signs Vital signs: Vital Signs Temp 98.1 F 04/10/24 12: Pulse 65 04/10/24 12: Resp 16 04/10/24 12:21 BP 96/58 04/10/24 12:21 Pulse Ox 100 04/10/24 12:21 FiO2 Intake & Output 04/09/24 04/10/24 04/10/24 18:59 06:59 18:59 Intake Total 300 118 Output Total 750 Balance -450 118 Intake: Oral 300 118 Blood Product 0 Rc As-1 Unit 0 [id number] Output: Urine 750 Other: Voiding Method Urinal Urinal # Voids 1 # Bowel Movements 1 - Exam Head exam is unremarkable. No scleral icterus or corneal arcus noted. Neck is without jugular venous distension, thyromegaly, or carotid bruits. Carotid upstrokes are brisk bilaterally. Lungs are showing diminished breath sounds along with diffuse expiratory wheezes throughout the lung ugarte bilaterally Cardiac exam reveals the PMI to be normally sized and situated. Rhythm is regu lar. First and second heart sounds normal. No murmurs, rubs or gallops. Abdominal exam reveals normal bowel sounds, no masses, no organomegaly and no aortic enlargement. Extremities are nonedematous and both femoral and pedal pulses are normal. Examination of the skin revealed no evidence of significant rashes, suspicious appearing nevi or other concerning lesions. Neurologically, the patient is awake and alert and the patient does not have any focal neurological deficit. Cranial nerves are essentially intact. - Labs CBC & Chem 7: 04/11/24 03:11 04/10/24 04:49 Labs: Abnormal Lab Results - Last 24 Hours (Table) 04/07/24 04/10/24 04/10/24 Range/Units 08:40 04:49 04:49 RBC 2.26 L (4.30-5.90) m/uL Hgb 6.8 L* (13.0-17.5) gm/dL Hct 22.1 L (39.0-53.0) % MCHC 30.5 L (31.0-37.0) g/dL Lymphocytes # 0.8 L (1.0-4.8) k/uL Sodium 132 L (137-145) mmol/L BUN 36 H (9-20) mg/dL Creatinine 1.48 H (0.66-1.25) mg/dL Crossmatch See Detail Assessment and Plan Assessment: -Anemia, symptomatic. dark stools off and on for some time/acute GI bleed. 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 Argon plasma coagulation carried out By Dr. Cat Reyes on April 09. Resume diet. Xarelto remains on hold -History of melanoma and prostate cancer both treated in the past. 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 Toprol-XL. Imdur. -Congestive heart failure, EF not known Lasix 40 mg a day -Hypothyroid Synthroid 150 mcg a day -Hyperlipidemia Lipitor 40 mg a day -Essential hypertension Toprol-XL 25 mg a day -Chronic constipation, patient normally has a bowel movement every 4 to 5 days -Paroxysmal atrial fibrillation currently in sinus rhythm On Eliquis. Hold for now. Toprol-XL 25 mg a day. Amiodarone
[2024-04-11 11:59] LABS: BUN/Creat Ratio 20.06 Ratio (12.00-20.00); Blood Urea Nitrogen 34.1 mg/dL (9.0-27.0); Calcium 8.2 mg/dL (8.7-10.3); Carbon Dioxide 26.8 mmol/L (21.6-31.8); Chloride 101 mmol/L (96-109); Glucose 98 mg/dL (70-110); Potassium 3.9 mmol/L (3.5-5.5); Sodium 137 mmol/L (135-145)
[2024-04-11] MEDS: PANTOPRAZOLE 40 MG/10 ML VIAL IVP SCH (13:29)
--- NOTE | 2024-04-11 17:07 | P.PN ---
Subjective Progress Note Date: 04/11/24 88-year-old patient who follows with visiting physician Dr. Garner. 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 Patient came in because he was told his hemoglobin is 7. Patient had a EGD colonoscopy over 10 years ago. Patient does take Xarelto and Plavix. Patient had dark stools off and on. Unit of blood was ordered in the ER does feel a bit tired. Patient seen in the ER this afternoon. Hemoglobin this morning dropped to 6.4. Monitor blood was ordered. Seen by Dr. Cat Reyes/GI. Event EGD colonoscopy ---EGD showed mild antral gastritis. Colonoscopy showed telangiectasias in the distal rectum consistent with radiation proctitis argon plasma coagulation was done. Per Dr. Cat Reyes to Xarelto to resume today -Hemoglobin down to 6.8 this morning; 1 unit of packed RBCs has been ordered; we will continue to hold Xarelto and monitor H&H closely 04/11/2024 Patient is seen and evaluated with family at bedside; denies any complaint of chest pain shortness of breath Vital signs are reviewed and stable Hemoglobin this 7.2; patient received transfusion with 1 unit packed RBCs yesterday for hemoglobin of 6.8 resulting in hemoglobin improving to 7.6 -- This morning hemoglobin is starting to trend down again and is at 7.2; Xarelto remains on hold -- Protonix has been added -We will continue to monitor H&H closely with transfusion as needed Objective - Vital Signs Vital signs: Vital Signs Temp 98.1 F 04/11/24 07:41 Pulse 62 04/11/24 08:00 Resp 17 04/11/24 08:00 BP 106/56 04/11/24 07:41 Pulse Ox 100 04/11/24 07:41 FiO2 Intake & Output 04/10/24 04/11/24 04/11/24 18:59 06:59 18:59 Intake Total 1744 240 Balance 1744 240 Intake: Oral 1434 240 Blood Product 310 Rc As-1 Unit 310 [id number] Other: Voiding Method Urinal Bedside Commode Bedside Commode Urinal Urinal Diaper Diaper # Voids 1 - Exam Head exam is unremarkable. No scleral icterus or corneal arcus noted. Neck is without jugular venous distension, thyromegaly, or carotid bruits. Carotid upstrokes are brisk bilaterally. Lungs are showing diminished breath sounds along with diffuse expiratory wheezes throughout the lung ugarte bilaterally Cardiac exam reveals the PMI to be normally sized and situated. Rhythm is regular. First and second heart sounds normal. No murmurs, rubs or gallops. Abdominal exam reveals normal bowel sounds, no masses, no organomegaly and no aortic enlargement. Extremities are nonedematous and both femoral and pedal pulses are normal. Examination of the skin revealed no evidence of significant rashes, suspicious appearing nevi or other concerning lesions. Neurologically, the patient is awake and alert and the patient does not have any focal neurological deficit. Cranial nerves are essentially intact. - Labs CBC & Chem 7: 04/11/24 03:11 04/11/24 03:11 Labs: Abnormal Lab Results - Last 24 Hours (Table) 04/07/24 04/10/24 04/11/24 Range/Units 08:40 12:57 03:11 RBC 2.50 L 2.43 L (4.30-5.90) m/uL Hgb 7.6 L 7.2 L (13.0-17.5) gm/dL Hct 23.9 L 23.3 L (39.0-53.0) % MCHC 30.9 L (32.0-37.0) g/dL RDW 16.0 H (11.5-14.5) % Crossmatch See Detail Assessment and Plan Assessment: -Anemia, symptomatic. dark stools off and on for some time/acute GI bleed. 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 Argon plasma coagulation carried out By Dr. Cat Reyes on April 09. Resume diet. Xarelto remains on hold -History of melanoma and prostate cancer both treated in the past. 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 Toprol-XL. Imdur. -Congestive heart failure, EF not known Lasix 40 mg a day -Hypothyroid Synthroid 150 mcg a day -Hyperlipidemia Lipitor 40 mg a day -Essential hypertension Toprol-XL 25 mg a day -Chronic constipation, patient normally has a bowel movement every 4 to 5 days -Paroxysmal atrial fibrillation currently in sinus rhythm On Eliquis. Hold for now. Toprol-XL 25 mg a day. Amiodarone
[2024-04-11] MEDS: ZINC OXIDE PASTE (Z-GUARD) 1 APPLIC TOPICAL PRN (21:33)
[2024-04-12 08:44] LABS: Blood Urea Nitrogen 32.8 mg/dL (9.0-27.0); Carbon Dioxide 25.7 mmol/L (21.6-31.8); Chloride 100 mmol/L (96-109); Glucose 102 mg/dL (70-110); Potassium 4.3 mmol/L (3.5-5.5); Sodium 136 mmol/L (135-145)
[2024-04-12 09:43] LABS: HCT 21.6 % (39.6-50.0); HGB 6.5 g/dL (13.0-17.0); Lymphocytes % (A) 10.6 %; MCH 28.9 pg (27.0-32.0); MCHC 30.1 g/dL (32.0-37.0); Mean Platelet Volume 10.2 FL (9.5-12.2); Monocytes % (A) 13.2 %; NRBC Per 100 WBC 0 X 10*3/uL (0.00-0.01); Neutrophils % (A) 72.3 %; Platelet Count 223 X 10*3/uL (140-440); RBC 2.25 X 10*6/uL (4.40-5.60); RDW 15.3 % (11.5-14.5); WBC 8.65 X 10*3/uL (4.50-10.00)
[2024-04-12 09:44] LABS: Basophils # (A) 0.04 X 10*3/uL (0.00-0.10); Basophils % (A) 0.5 %; Eosinophils # (A) 0.27 X 10*3/uL (0.04-0.35); Eosinophils % (A) 3.1 %; Lymphocytes # (A) 0.92 X 10*3/uL (0.90-5.00); Monocytes # (A) 1.14 X 10*3/uL (0.20-1.00); Neutrophils # (A) 6.25 X 10*3/uL (1.80-7.70)
[2024-04-12] MEDS: LACTULOSE 20 GM/30 ML CUP PO SCH (13:40)
[2024-04-12] MEDS: FUROSEMIDE 10 MG/ML 2 ML VIAL IV ONE (15:23)
--- NOTE | 2024-04-13 02:34 | PN ---
PROGRESS NOTE DATE OF SERVICE: 04/12/2024 SUBJECTIVE: This is an 88-year-old gentleman admitted with anemia with a hemoglobin of 7. EGD showed mild antral gastritis and colonoscopy showed telangiectasias in the distal rectum, which was cauterized secondary to radiation proctitis. The patient also had history of having melanoma, seen in [facility]. The patient already received 4 units of transfusion and hemoglobin is 6.5 today. No active bleeding noted. The patient is constipated. PAST MEDICAL HISTORY: Reviewed. REVIEW OF SYSTEMS: A 14-point review of systems is negative except as mentioned earlier. CURRENT MEDICATIONS: Reviewed. PHYSICAL EXAMINATION: VITAL SIGNS: Pulse is 69, blood pressure 98/69, respirations 18. HEENT: Conjunctivae are pale. NECK: No JVD. CARDIOVASCULAR: S1, S2. RESPIRATIONS: Breath sounds diminished at the bases. A few scattered rhonchi. ABDOMEN: Soft. NERVOUS SYSTEM: Nonfocal. LABORATORY DATA: Hemoglobin 6.5, and creatinine is 1.6. ASSESSMENT: 1. Anemia, multifactorial, possible gastrointestinal bleed with rectal telangiectasias, status post colonoscopy and cauterization. 2. Status post transfusion of 4 units of blood. The patient is on Xarelto and Plavix. 3. History of melanoma and prostate cancer. 4. Aortic valve replacement with bovine valve. 5. Degenerative joint disease. 6. History of atrial fibrillation, coronary artery disease, coronary artery bypass graft. RECOMMENDATIONS AND DISCUSSION: I recommend to continue current management and continue symptomatic treatment. The patient's anticoagulation is in hold at this time. Otherwise, recommend 2 more units of transfusion. Hematology, Oncology consultation. INR is normal. Prognosis extremely guarded because of multiple complex medical issues and further recommendations to follow. The patient had history of atrial fibrillation also. MMODL / IJN: [id number] /
[2024-04-13 08:16] LABS: Basophils # (A) 0.06 X 10*3/uL (0.00-0.10); Basophils % (A) 0.7 %; Eosinophils # (A) 0.36 X 10*3/uL (0.04-0.35); HGB 8.5 g/dL (13.0-17.0); Lymphocytes # (A) 1.08 X 10*3/uL (0.90-5.00); MCH 29.2 pg (27.0-32.0); MCHC 31.5 g/dL (32.0-37.0); MCV 92.8 FL (80.0-97.0); Mean Platelet Volume 10.2 FL (9.5-12.2); Monocytes # (A) 1.24 X 10*3/uL (0.20-1.00); Monocytes % (A) 13.8 %; NRBC Per 100 WBC 0 X 10*3/uL (0.00-0.01); Neutrophils # (A) 6.24 X 10*3/uL (1.80-7.70); Neutrophils % (A) 69.2 %; Platelet Count 220 X 10*3/uL (140-440); RBC 2.91 X 10*6/uL (4.40-5.60); RDW 16.2 % (11.5-14.5); WBC 9.01 X 10*3/uL (4.50-10.00)
[2024-04-13 08:41] LABS: BUN/Creat Ratio 17.31 Ratio (12.00-20.00); Blood Urea Nitrogen 27.7 mg/dL (9.0-27.0); Carbon Dioxide 24.4 mmol/L (21.6-31.8); Chloride 104 mmol/L (96-109); Glucose 104 mg/dL (70-110); Potassium 4.1 mmol/L (3.5-5.5); Sodium 139 mmol/L (135-145)
[2024-04-13 10:35] VITALS: BMI 36.8
[2024-04-13] MEDS: LACTULOSE 20 GM/30 ML CUP PO SCH (12:02)
--- NOTE | 2024-04-13 14:04 | P.CONS ---
History of Present Illness - Reason for Consult Consult date: 04/13/24 Anemia - History of Present Illness Mr. Mancia is an 88-year-old gentleman with a past medical history significant for iron deficiency anemia along with atrial fibrillation on Xarelto, coronary artery disease on Plavix, and prior prostate cancer status post radiation therapy in the remote past who was noted to have anemia on routine blood work outpatient. He was notified by the ordering physicians to present to the ED for blood transfusion. At that time, he was feeling well without any signs or symptoms of anemia including no fatigue, dyspnea, orthostatic dizziness, chest pain, or palpitations. On admission, hemoglobin was 7 (MCV 101.4), WBC 11.1 (ANC 8.2), platelets 357. Since admission, he has required a total of 5 units of packed red blood cells (most recently on 04/12/2024) for persistently low hemoglobins without appropriate response. Coagulation studies on 04/07/2024 revealed INR of 1.4 with repeat INR on 04/09/2024 being normal at 1.07. Iron studies were consistent with iron deficiency with ferritin of 27.2 and iron saturation of 4.86%. Creatinine on admission was 1.85 and is currently 1.6 with unclear baseline (was 1.1 on 05/30/2023). He did have a positive occult stool. Xarelto and Plavix have been stopped and he underwent EGD/colonoscopy on 04/09/2024. Upper endoscopy revealed mild antral gastritis with no evidence of esophagitis or peptic ulcer disease. Colonoscopy revealed telangiectasia in the distal rectum consistent with radiation proctitis and underwent argon plasma coagulatio n. Repeat CBC after blood transfusion on 04/12/2024 noted appropriate response with hemoglobin 8.5 (MCV 92.8), WBC 9.01, platelets 220. Review of Systems 14 point review of systems was conducted with pertinent positives and negatives as noted per HPI Past Medical History Past Medical History: Atrial Fibrillation, Cancer Additional Past Medical History / Comment(s): prostate CA, melanoma (great toe), History of Any Multi-Drug Resistant Organisms: None Reported Past Surgical History: Cardiac Valve Replacement, Cholecystectomy, Coronary Byp ass/CABG, Heart Catheterization Additional Past Surgical History / Comment(s): left hand. Past Anesthesia/Blood Transfusion Reactions: No Reported Reaction Smoking Status: Former smoker Past Alcohol Use History: Occasional Past Drug Use History: None Reported - Past Family History Father Family Medical History: Congestive Heart Failure (CHF), Coronary Artery Disease (CAD), Myocardial Infarction ([place]) Additional Family Medical History / Comment(s): from [place] Mother Family Medical History: Myocardial Infarction ([place]) Additional Family Medical History / Comment(s): from [place] Medications and Allergies Home Medications Medication Instructions Recorded Confirmed Type Amiodarone [Cordarone] 100 mg PO DAILY 04/07/24 04/07/24 History Ascorbic Acid [Vitamin C] 1,000 mg PO DAILY 04/07/24 04/07/24 History Atorvastatin [Lipitor] 40 mg PO DAILY 04/07/24 04/07/24 History Cholecalciferol [Vitamin D3 (125 125 mcg PO DAILY 04/07/24 04/07/24 History Mcg = 5000 Iu)] Clopidogrel [Plavix] 75 mg PO DAILY 04/07/24 04/07/24 History Cyanocobalamin (Vitamin B-12) 1,000 mcg PO DAILY 04/07/24 04/07/24 History [Vitamin B-12] Furosemide [Lasix] 40 mg PO DAILY 04/07/24 04/07/24 History Isosorbide Mononitrate ER [Imdur] 30 mg PO DAILY 04/07/24 04/07/24 History Levothyroxine Sodium [Synthroid] 150 mcg PO DAILY 04/07/24 04/07/24 History Linaclotide [Linzess] 145 mcg PO DIRECTED 04/07/24 04/07/24 History Metoprolol Succinate (ER) [Toprol 25 mg PO DAILY 04/07/24 04/07/24 History Xl] Multivitamins, Thera [Multivitamin 1 tab PO DAILY 04/07/24 04/07/24 History (formulary)] Nitroglycerin Sl Tabs [Nitrostat] 0.4 mg SUBLINGUAL Q5M PRN 04/07/24 04/07/24 History Rivaroxaban [Xarelto] 20 mg PO W/SUPPER 04/07/24 04/07/24 History Sennosides-Docusate Sodium 2 tab PO DAILY 04/07/24 04/07/24 History [Senokot-S] Allergies Allergy/AdvReac Type Severity Reaction Status Date / Time No Known Allergies Allergy Verified 04/07/24 10:11 Physical Exam Vitals: Vital Signs Temp Pulse Pulse Resp BP BP Pulse Ox 04/13/24 07:32 99.5 F 65 16 131/63 94 L 04/13/24 01:18 98.4 F 59 L 16 110/57 95 04/12/24 20:06 16 04/12/24 19:40 98.3 F 70 16 121/68 96 04/12/24 18:38 98.3 F 75 18 120/70 98 04/12/24 18:34 98.2 F 74 18 122/64 97 04/12/24 18:32 98.6 F 74 18 114/70 97 04/12/24 17:14 98.4 F 69 18 112/67 98 04/12/24 16:54 98.2 F 70 18 116/70 98 04/12/24 16:41 98.7 F 74 18 104/67 97 04/12/24 15:30 98.4 F 67 18 101/67 04/12/24 15:19 98.3 F 70 18 108/69 04/12/24 13:28 98.4 F 72 18 101/72 04/12/24 13:08 98.1 F 69 18 98/69 04/12/24 12:46 98.2 F 67 18 99/67 04/12/24 11:45 98.2 F 68 16 96/55 93 L Intake and Output 04/12/24 04/13/24 04/13/24 22:59 06:59 14:59 Intake Total 592 480 Output Total 800 800 Balance -208 -800 480 Intake: Oral 480 Blood Product 592 Rc As-1 Unit 310 [id number] Rc Pheresis As-3 Unit 282 [id number] Output: Urine 800 800 Other: Voiding Method External Catheter - Constitutional General appearance: cooperative, no acute distress - EENT Pale mucous membranes with no scalloped tongue or glossitis Eyes: EOMI - Respiratory Respiratory: bilateral: CTA - Cardiovascular Rhythm: regular - Gastrointestinal General gastrointestinal: no distended, soft, no tenderness - Integumentary Integumentary: pale - Neurologic Neurologic: CNII-XII intact - Psychiatric Psychiatric: A&O x's 3 Results CBC & Chem 7: 04/13/24 04:42 04/13/24 04:42 Labs: Abnormal Lab Results - Last 24 Hours (Table) 04/07/24 04/12/24 04/13/24 Range/Units 08:40 10:22 04:42 RBC 2.91 L (4.40-5.60) X 10*6/uL Hgb 8.5 L (13.0-17.0) g/dL Hct 27.0 L (39.6-50.0) % MCHC 31.5 L (32.0-37.0) g/dL RDW 16.2 H (11.5-14.5) % Monocytes # 1.24 H (0.20-1.00) X 10*3/uL Eosinophils # 0.36 H (0.04-0.35) X 10*3/uL BUN (9.0-27.0) mg/dL Creatinine (0.6-1.5) mg/dL Est GFR (CKD-EPI) (>=60) Calcium (8.7-10.3) mg/dL Crossmatch See Detail See Detail 04/13/24 Range/Units 04:42 RBC (4.40-5.60) X 10*6/uL Hgb (13.0-17.0) g/dL Hct (39.6-50.0) % MCHC (32.0-37.0) g/dL RDW (11.5-14.5) % Monocytes # (0.20-1.00) X 10*3/uL Eosinophils # (0.04-0.35) X 10*3/uL BUN 27.7 H (9.0-27.0) mg/dL Creatinine 1.6 H (0.6-1.5) mg/dL Est GFR (CKD-EPI) 42 L (>=60) Calcium 8.0 L (8.7-10.3) mg/dL Crossmatch Assessment and Plan (1) Iron deficiency anemia Current Visit: Yes Status: Acute Code(s): D50.9 - IRON DEFICIENCY ANEMIA, UNSPECIFIED SNOMED Code(s): 23414215 (2) GI bleed Current Visit: Yes Status: Acute Code(s): K92.2 - GASTROINTESTINAL HEMORR ADOLFO, UNSPECIFIED SNOMED Code(s): 31720814 (3) Neutrophilic leukocytosis Current Visit: Yes Status: Resolved Code(s): D72.828 - OTHER ELEVATED WHITE BLOOD CELL COUNT SNOMED Code(s): 558738750 Plan: #Iron deficiency anemia -Was noted to have hemoglobin of 7 with mild macrocytosis on admission along with neutrophilic leukocytosis -Iron studies were consistent with profound iron deficiency with ferritin of 27.2 and iron saturation of 4.86%, which could have explained in part is neutrophilic leukocytosis -Xarelto and Plavix were stopped on admission with a EGD/colonoscopy on 04/09/2024 being significant for telangiectasia in the distal rectum secondary to radiation proctitis status post argon plasma coagulation -He has received a total of 5 units of packed red blood cells during his admission with repeat CBC today revealing appropriate response to packed red blood cell transfusion -Iron deficiency anemia is likely secondary to GI blood loss secondary to telangiectasia found in the distal rectum exacerbated by Plavix and Xarelto status post APC treatment and now having appropriate response to packed red blood cell transfusion -Ferrlecit 125 mg IV daily for 4 doses ordered today -Additional workup for anemia has also been ordered including vitamin B12, folic acid, TSH, and monoclonal gammopathy labs -He can be seen in follow-up outpatient in approximately 4 weeks to assess response of IV iron and assess whether additional IV iron is needed Angel Rivera MD
--- NOTE | 2024-04-13 14:37 | P.CRDCN ---
History of Present Illness History of present illness: I am seeing this 88-year-old male patient Patient admitted with GI bleeding. Cardiology was consulted because of his history of atrial fibrillation on Xarelto and history of valvular heart disease along with two-vessel coronary bypass grafting many years back. Patient follows with Dr. Marcos. He is on Plavix in addition to Xarelto. Both drugs are on hold. He has been worked up for GI bleed At this time patient denies any chest discomfort dizziness lightheadedness or palpitations. 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 His hemoglobin was as low as 6.5 Electrolytes normal Creatinine 1.7 Past history of atrial fibrillation, dyslipidemia coronary artery disease two- vessel bypass grafting hypertension Impression GI bleeding with severe anemia Atrial fibrillation maintaining sinus rhythm on low-dose amiodarone Coronary artery bypass grafting Aortic valve replacement bovine valve Hold off on antiplatelet and anticoagulant therapy for now and resume at least Xarelto at a lower dose in the future in the next few weeks as recommended by GI medicine Follow-up with Dr. Marcos Continue other cardiac medications include amiodarone atorvastatin Lasix isosorbide and metoprolol Follow-up with Dr. Marcos in the next 3 to 4 weeks Past Medical History Past Medical History: Atrial Fibrillation, Cancer Additional Past Medical History / Comment(s): prostate CA, melanoma (great toe), History of Any Multi-Drug Resistant Organisms: None Reported Past Surgical History: Cardiac Valve Replacement, Cholecystectomy, Coronary Bypass/CABG, Heart Catheterization Additional Past Surgical History / Comment(s): left hand. Past Anesthesia/Blood Transfusion Reactions: No Reported Reaction Smoking Status: Former smoker Past Alcohol Use History: Occasional Past Drug Use History: None Reported - Past Family History Father Family Medical History: Congestive Heart Failure (CHF), Coronary Artery Disease (CAD), Myocardial Infarction ([place]) Additional Family Medical History / Comment(s): from [place] Mother Family Medical History: Myocardial Infarction ([place]) Additional Family Medical History / Comment(s): from [place] Medications and Allergies Home Medications Medication Instructions Recorded Confirmed Type Amiodarone [Cordarone] 100 mg PO DAILY 04/07/24 04/07/24 History Ascorbic Acid [Vitamin C] 1,000 mg PO DAILY 04/07/24 04/07/24 History Atorvastatin [Lipitor] 40 mg PO DAILY 04/07/24 04/07/24 History Cholecalciferol [Vitamin D3 (125 125 mcg PO DAILY 04/07/24 04/07/24 History Mcg = 5000 Iu)] Clopidogrel [Plavix] 75 mg PO DAILY 04/07/24 04/07/24 History Cyanocobalamin (Vitamin B-12) 1,000 mcg PO DAILY 04/07/24 04/07/24 History [Vitamin B-12] Furosemide [Lasix] 40 mg PO DAILY 04/07/24 04/07/24 History Isosorbide Mononitrate ER [Imdur] 30 mg PO DAILY 04/07/24 04/07/24 History Levothyroxine Sodium [Synthroid] 150 mcg PO DAILY 04/07/24 04/07/24 History Linaclotide [Linzess] 145 mcg PO DIRECTED 04/07/24 04/07/24 History Metoprolol Succinate (ER) [Toprol 25 mg PO DAILY 04/07/24 04/07/24 History Xl] Multivitamins, Thera [Multivitamin 1 tab PO DAILY 04/07/24 04/07/24 History (formulary)] Nitroglycerin Sl Tabs [Nitrostat] 0.4 mg SUBLINGUAL Q5M PRN 04/07/24 04/07/24 History Rivaroxaban [Xarelto] 20 mg PO W/SUPPER 04/07/24 04/07/24 History Sennosides-Docusate Sodium 2 tab PO DAILY 04/07/24 04/07/24 History [Senokot-S] Allergies Allergy/AdvReac Type Severity Reaction Status Date / Time No Known Allergies Allergy Verified 04/07/24 10:11 Physical Exam Vitals: Vital Signs Temp Pulse Pulse Resp BP BP Pulse Ox 04/13/24 11:38 99.1 F 68 16 115/55 98 04/13/24 07:32 99.5 F 65 16 131/63 94 L 04/13/24 01:18 98.4 F 59 L 16 110/57 95 04/12/24 20:06 16 04/12/24 19:40 98.3 F 70 16 121/68 96 04/12/24 18:38 98.3 F 75 18 120/70 98 04/12/24 18:34 98.2 F 74 18 122/64 97 04/12/24 18:32 98.6 F 74 18 114/70 97 04/12/24 17:14 98.4 F 69 18 112/67 98 04/12/24 16:54 98.2 F 70 18 116/70 98 04/12/24 16:41 98.7 F 74 18 104/67 97 04/12/24 15:30 98.4 F 67 18 101/67 04/12/24 15:19 98.3 F 70 18 108/69 Intake and Output 04/12/24 04/13/24 04/13/24 22:59 06:59 14:59 Intake Total 592 480 Output Total 800 800 Balance -208 -800 480 Intake: Oral 480 Blood Product 592 Rc As-1 Unit 310 [id number] Rc Pheresis As-3 Unit 282 [id number] Output: Urine 800 800 Other: Voiding Method External Catheter External Catheter Weight 109.769 kg Results 04/13/24 04:42 04/13/24 04:42 CBC 04/13/24 Range/Units 04:42 WBC 9.01 (4.50-10.00) X 10*3/uL RBC 2.91 L (4.40-5.60) X 10*6/uL Hgb 8.5 L (13.0-17.0) g/dL Hct 27.0 L (39.6-50.0) % Plt Count 220 (140-440) X 10*3/uL Comprehensive Metabolic Panel 04/13/24 Range/Units 04:42 Sodium 139 (135-145) mmol/L Potassium 4.1 (3.5-5.5) mmol/L Chloride 104 (96-109) mmol/L Carbon Dioxide 24.4 (21.6-31.8) mmol/L BUN 27.7 H (9.0-27.0) mg/dL Creatinine 1.6 H (0.6-1.5) mg/dL Glucose 104 (70-110) mg/dL Calcium 8.0 L (8.7-10.3) mg/dL Current Medications Generic Name Dose Route Start Last Admin Trade Name Freq PRN Reason Stop Dose Admin Amiodarone HCl 100 mg 04/08/24 09:00 04/13/24 09:07 Amiodarone 200 Mg Tab PO 100 mg DAILY MALLORY Administration Ascorbic Acid 1,000 mg 04/08/24 09:00 04/13/24 09:07 Ascorbic Acid 500 Mg Tab PO 1,000 mg DAILY MALLORY Administration Atorvastatin Calcium 40 mg 04/08/24 09:00 04/13/24 09:07 Atorvastatin 40 Mg Tab PO 40 mg DAILY MALLORY Administration Cholecalciferol 125 mcg 04/08/24 09:00 04/13/24 09:07 Cholecalciferol 125 Mcg (5000 Iu) Tablet PO 125 mcg DAILY MALLORY Administration Cyanocobalamin 1,000 mcg 04/08/24 09:00 04/13/24 09:07 Cyanocobalamin 500 Mcg Tab PO 1,000 mcg DAILY MALLORY Administration Furosemide 40 mg 04/08/24 09:00 04/13/24 09:07 Furosemide 40 Mg Tab PO 40 mg DAILY MALLORY Administration Isosorbide Mononitrate 30 mg 04/08/24 09:00 04/13/24 09:08 Isosorbide Mononitrate Er 30 Mg Tab.Er.24h PO 30 mg DAILY MALLORY Administration Lactulose 20 gm 04/13/24 12:00 04/13/24 12:02 Lactulose 20 Gm/30 Ml Cup PO 20 gm Q4HR MALLORY Administration Levothyroxine Sodium 150 mcg 04/08/24 06:30 04/13/24 06:28 Levothyroxine 50 Mcg Tab PO 150 mcg DAILY@0630 MALLORY Administration Metoprolol Succinate 25 mg 04/08/24 09:00 04/13/24 09:06 Metoprolol Succinate (Er) 25 Mg Tab.Er.24h PO 25 mg DAILY MALLORY Administration Multivitamins 1 each 04/08/24 09:00 04/13/24 09:07 Multivitamins, Thera 1 Each Tab PO 1 each DAILY MALLORY Administration Naloxone HCl 0.2 mg 04/07/24 11:44 Naloxone 0.4 Mg/Ml 1 Ml Vial IV Q2M PRN Opioid Reversal Pantoprazole Sodium 40 mg 04/11/24 11:45 04/13/24 09:06 Pantoprazole 40 Mg/10 Ml Vial IVP 40 mg BID MALLORY Administration Petrolatum 1 applic 04/09/24 05:13 04/11/24 21:33 Zinc Oxide Paste (Z-Guard) 1 Applic TOPICAL 1 applic BID PRN Administration Wound Healing Protocol Polyethylene Glycol 17 gm 04/08/24 09:00 04/13/24 09:05 Polyethylene Glycol 3350 17 Gm Powd.Pack PO 17 gm DAILY MALLORY Administration Senna/Docusate Sodium 2 each 04/08/24 09:00 04/13/24 09:06 Sennosides-Docusate Sodium 1 Each Tab PO 2 each DAILY MALLORY Administration Intake and Output 04/12/24 04/13/24 04/13/24 22:59 06:59 14:59 Intake Total 592 480 Output Total 800 800 Balance -208 -800 480 Intake: Oral 480 Blood Product 592 Rc As-1 Unit 310 [id number] Rc Pheresis As-3 Unit 282 [id number] Output: Urine 800 800 Other: Voiding Method External Catheter External Catheter Weight 109.769 kg Patient Weight 04/14/24 06:59 Weight 109.769 kg 04/13/24 04:42 04/13/24 04:42
[2024-04-13 16:02] LABS: LDH 208 U/L (120-246)
[2024-04-13] MEDS ORDERED: LACTULOSE 20 GM/30 ML CUP PO PRN (17:35)
[2024-04-13 20:48] LABS: Protein, Total 5.4 g/dL (6.2-8.2)
[2024-04-13 20:49] LABS: Immunoglobulin M 69.4 mg/dL (40.0-280.0)
[2024-04-13] MEDS ORDERED: ACETAMINOPHEN TAB 325 MG TAB PO PRN (21:41)
--- NOTE | 2024-04-13 22:49 | PN ---
PROGRESS NOTE DATE OF SERVICE: 04/13/2024 SUBJECTIVE: This is an 88-year-old gentleman admitted with significant anemia, hemoglobin improved to 8.5 after 2 units of transfusion. The patient is constipated. The patient also had multiple problems including melanoma, seen in [facility] also. The patient also seen by Hematology/Oncology. PAST MEDICAL HISTORY: Reviewed. REVIEW OF SYSTEMS: A 14-point review of systems is negative except as mentioned earlier. CURRENT MEDICATIONS: Reviewed. PHYSICAL EXAMINATION: VITAL SIGNS: Pulse is 68, blood pressure 115/54,respirations 16. HEENT: Conjunctivae pale. CARDIOVASCULAR: S1, S2. RESPIRATIONS: Breath sounds diminished at the bases. A few scattered rhonchi. ABDOMEN: Soft. NERVOUS SYSTEM: Nonfocal. LABORATORY DATA: WBC 9.7, hemoglobin is 8.5. Rest of the labs are noted. ASSESSMENT: 1. 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 2. Status post transfusion of 5 units of transfusion, PRBCs. The patient is on Xarelto and Plavix. 3. History of melanoma and prostate cancer. 4. Aortic valve replacement with bovine valve. 5. Degenerative joint disease. 6. History of atrial fibrillation, coronary artery disease, coronary artery bypass graft. RECOMMENDATIONS AND DISCUSSION: I recommend to continue current management and continue symptomatic treatment. I also recommended Cardiology evaluation about the choice of antiplatelet agent if any, otherwise continue rest of medications. Prognosis, extremely guarded. Further recommendations to follow. MMGURDEEP / PETRAN: [id number] /
[2024-04-14 08:14] VITALS: BP 113/71; PULSE 62; RESP 17; TEMP 98.8
[2024-04-14 09:29] LABS: BUN/Creat Ratio 16.69 Ratio (12.00-20.00); Basophils # (A) 0.05 X 10*3/uL (0.00-0.10); Basophils % (A) 0.5 %; Blood Urea Nitrogen 26.7 mg/dL (9.0-27.0); Calcium 8.3 mg/dL (8.7-10.3); Chloride 104 mmol/L (96-109); Eosinophils # (A) 0.33 X 10*3/uL (0.04-0.35); Eosinophils % (A) 3.3 %; Glucose 104 mg/dL (70-110); HCT 27.4 % (39.6-50.0); HGB 8.4 g/dL (13.0-17.0); Lymphocytes # (A) 1.22 X 10*3/uL (0.90-5.00); Lymphocytes % (A) 12.4 %; MCHC 30.7 g/dL (32.0-37.0); MCV 94.5 FL (80.0-97.0); Mean Platelet Volume 10.4 FL (9.5-12.2); Monocytes # (A) 1.36 X 10*3/uL (0.20-1.00); Monocytes % (A) 13.8 %; NRBC Per 100 WBC 0 X 10*3/uL (0.00-0.01); Neutrophils # (A) 6.88 X 10*3/uL (1.80-7.70); Neutrophils % (A) 69.7 %; Platelet Count 221 X 10*3/uL (140-440); Potassium 4.8 mmol/L (3.5-5.5); RDW 15.9 % (11.5-14.5); Sodium 138 mmol/L (135-145); WBC 9.87 X 10*3/uL (4.50-10.00)
--- NOTE | 2024-04-14 10:16 | PN ---
PROGRESS NOTE SUBJECTIVE: This is an 88-year-old gentleman, who has history of coronary artery disease, status post bypass surgery, valvular heart disease and history of atrial fibrillation. He is admitted to hospital with GI bleed and severe symptomatic anemia and underwent multiple blood transfusions. Cardiology has been consulted because of his cardiac history. He was evaluated by my associate, Dr. Narvaez, yesterday and a detailed consultation has been done and please refer to it. At the time of my evaluation this morning, the patient appears comfortable at rest and is free of cardiac symptoms. PHYSICAL EXAMINATION: VITAL SIGNS: Heart rate is 60 beats per minute, blood pressure is 113/71, respiratory rate is 18, O2 saturation is 98% on room air. CHEST: Reveals good air entry bilaterally. HEART: Reveals first and second heart sounds. An ejection systolic murmur in the aortic area. ABDOMEN: Soft. EXTREMITIES: Did not reveal any edema. LABORATORY DATA: I do not have any labs from this morning. His hemoglobin was 8.5 yesterday. ASSESSMENT: 1. Persistent atrial fibrillation. 2. Coronary artery disease, status post coronary artery bypass graft. 3. History of aortic valve replacement. PLAN: The patient will hold anticoagulants and antiplatelet agents until his GI blood loss issues resolve. He follows with a chemical plant manager out of town and I encouraged the patient to follow up with his chemical plant manager within the next 1 week, so that this issue can be addressed as outpatient. BRIDGETTE / PETRAN: [id number] /
--- NOTE | 2024-04-14 18:28 | DS ---
DISCHARGE SUMMARY FINAL DIAGNOSES: 1. Anemia, multifactorial, possibly GI bleed from rectal. 2. 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 3. Status post transfusion of 5 units of PRBCs. The patient is off Xarelto and Plavix. 4. History of melanoma and prostate cancer. 5. Aortic valve replacement, bovine valve. 6. Degenerative joint disease. 7. Multiple complex medical issues. 8. History of atrial fibrillation. 9. Coronary artery disease, coronary artery bypass grafting. DISCHARGE DISPOSITION: The patient will be discharged in stable condition and guarded prognosis. HISTORY OF PRESENT ILLNESS: This is an 88-year-old gentleman, admitted with GI bleed and Dr. Reyes performed an endoscopy which showed telangiectasia as mentioned earlier. The patient was transfused multiply. Hemoglobin stable around 8.5. Currently, the patient has bruised significantly. Cardiology recommended to withhold the anticoagulations and reintroduce on a sequential basis if okay with Hematology/Oncology, Primary and GI. The patient is stable at this time. The patient will be discharged in a stable condition and guarded prognosis. Resume the home medications except the anticoagulation, antiplatelet agents, and 20 mg p.o. daily. Outpatient followup. MMODL / IJN: [id number] / [place]
[2024-04-15 09:29] LABS: Free Kappa Lt Chain Qnt, Serum 3.51 mg/dL (0.33-1.94); Free Lambda Lt Chain Qnt, Seru 6.18 mg/dL (0.57-2.63)
[2024-04-16 14:45] LABS: Albumin 2.75 g/dL (3.80-4.90); Gamma Globulin 0.62 g/dL (0.70-1.50)
== END 2024-04-14 12:20 | disposition home or self-care (01) | DRG 393 ==
LOC: EC 08:17 → 5NMEDONC 11:47
PROVIDERS: ADMIT Hospitalist; ATTEND Hospitalist
PROC: 30233N1 Transfusion of Nonautologous Red Blood Cells into Peripheral Vein, Percutaneous Approach (ICD-10-PCS; 2024-04-07)
PROC: 0W3P8ZZ Control Bleeding in Gastrointestinal Tract, Via Natural or Artificial Opening Endoscopic (ICD-10-PCS; principal; 2024-04-09 14:50)
PROC: 0DJ08ZZ Inspection of Upper Intestinal Tract, Via Natural or Artificial Opening Endoscopic (ICD-10-PCS; 2024-04-09 14:50)
DX: K62.7 Radiation proctitis (principal); K55.21 Angiodysplasia of colon with hemorrhage; D62 Acute posthemorrhagic anemia; E87.20 Acidosis, unspecified; K92.1 Melena; I48.19 Other persistent atrial fibrillation; Z85.46 Personal history of malignant neoplasm of prostate; Z95.2 Presence of prosthetic heart valve; M15.9 Polyosteoarthritis, unspecified; Z95.1 Presence of aortocoronary bypass graft; I25.10 Atherosclerotic heart disease of native coronary artery without angina pectoris; Z79.02 Long term (current) use of antithrombotics/antiplatelets; I50.9 Heart failure, unspecified; I11.0 Hypertensive heart disease with heart failure; E78.5 Hyperlipidemia, unspecified; K59.09 Other constipation; I48.0 Paroxysmal atrial fibrillation; Z66 Do not resuscitate; K64.9 Unspecified hemorrhoids; Y84.2 Radiological procedure and radiotherapy as the cause of abnormal reaction of the patient, or of later complication, without mention of misadventure at the time of the procedure; I78.1 Nevus, non-neoplastic; D72.828 Other elevated white blood cell count; E03.9 Hypothyroidism, unspecified; Z79.890 Hormone replacement therapy; Z79.01 Long term (current) use of anticoagulants; Z79.899 Other long term (current) drug therapy; Z82.49 Family history of ischemic heart disease and other diseases of the circulatory system; Z85.820 Personal history of malignant melanoma of skin; Z87.891 Personal history of nicotine dependence; Z92.3 Personal history of irradiation; Z95.3 Presence of xenogenic heart valve; Z90.49 Acquired absence of other specified parts of digestive tract; K29.70 Gastritis, unspecified, without bleeding
CPT/HCPCS: 36415; 36430; 43235; 45388; 71046; 80048; 80053; 82272; 82607; 82728; 82746; 82784; 83010; 83540; 83550; 83605; 83615; 83735; 83880; 83883; 84165; 84443; 84484; 85025; 85027; 85610; 85730; 86334; 86850; 86900; 86901; 86920; 93005; 99291